=== PATIENT | female | born 1940 | race Caucasian/White ===

== ENCOUNTER 2018-05-03 12:09 | Emergency (ER) | payer MEDICARE ==
[2018-05-03 13:26] LABS: #Eosinphils 0.1 thou/uL (0.0-0.7); #Lymphocytes 1.7 thou/uL (1.20-3.40); #Monocytes 0.3 thou/uL (0.11-0.59); #Neutrophils 2.8 thou/uL (1.40-6.50); %Basophils 0.9 % (0.0-1.0); %Eosinophils 1.6 % (0.0-10.0); %Lymphocytes 34.6 % (21.0-51.0); %Monocytes 6.7 % (0.0-10.0); %Neutrophils 56.2 % (42.0-75.0); Hemoglobin 14.5 g/dL (12.0-16.0); Mean Corpuscular Hemoglobin 31.8 pg (27.0-31.0); Mean Corpuscular Volume 99.3 fL (78.0-98.0); Mean Platelet Volume 8.4 fL (7.4-10.4); Platelet Count 123 thou/uL (130-400); RBC Distribution Width 13.9 % (11.5-14.5); Red Blood Cell (RBC) Count 4.55 mill/uL (4.20-5.40)
[2018-05-03 13:55] LABS: ALT (SGPT) 15 U/L (8-55); AST (SGOT) 27 U/L (5-34); Albumin 4.1 g/dL (3.4-4.8); Alkaline Phosphatase 114 U/L (40-150); Anion Gap 14 mmol/L (10-20); BUN (Urea Nitrogen) 22 mg/dL (9.8-20.1); Bilirubin, Total 0.9 mg/dL (0.2-1.2); Calc. Creatinine Clearance 0 mL/min (70-130); Calcium 9.6 mg/dL (7.8-10.44); Carbon Dioxide 25 mmol/L (23-31); Chloride 101 mmol/L (98-107); Estimated GFR-MDRD 50; Globulin 3.9 g/dL (2.4-3.5); Glucose 101 mg/dL (83-110); Potassium 4.3 mmol/L (3.5-5.1); Sodium 136 mmol/L (136-145)
[2018-05-03] MEDS ORDERED: Clindamycin/D5W 600 mg/50 ml Premix Bag ONE (14:19)
--- NOTE | 2018-05-03 14:59 | ULT ---
ARTERIAL DUPLEX SONOGRAM RIGHT LOWER EXTREMITY: Date: 05/03/18 HISTORY: Right leg wound. Vascular disease. Poor flow. FINDINGS: Good color and spectral Doppler flow with biphasic waveform in the common femoral and deep femoral, f emoral, popliteal, anterior tibial, and posterior tibial arteries without abnormally elevated peak sy stolic velocities. Monophasic flow within the dorsal pedis artery. IMPRESSION: Good arterial flow within the right lower extremity. No evidence of significant stenosis. POS: [facility]
== END 2018-05-03 16:00 | disposition home or self-care (01) ==
LOC: ERS 12:09
DX: L03.115 Cellulitis of right lower limb (principal); I48.91 Unspecified atrial fibrillation; I10 Essential (primary) hypertension; Z79.82 Long term (current) use of aspirin; Z79.899 Other long term (current) drug therapy
CPT/HCPCS: 80053; 85025; 93923; 96365; J3490

== ENCOUNTER 2018-05-09 10:23 | Inpatient (IN) | payer MEDICARE ==
[2018-05-09 13:48] VITALS: BMI 30.3
[2018-05-09] MEDS ORDERED: Lorazepam 0.5 MG TAB PO PRN (14:50)
[2018-05-09] MEDS ORDERED: Vancomycin HCl 1.75 GM in Sodium Chloride 0.9% 500 ML IVPB SCH (15:00)
[2018-05-09] MEDS: Clindamycin/D5W 600 MG in Premix Bag 1 BAG IVPB SCH ×4 (15:29→21:49)
--- NOTE | 2018-05-09 15:35 | RAD ---
RIGHT LEG TWO VIEWS: 05/09/18 HISTORY: Right lower extremity cellulitis, dog bite wound. FINDINGS: The right tibia and fibula are intact. No bony destruction, fracture or periosteal reaction is seen. There are degenerative changes in the knee joint. Calcaneal spur is present. IMPRESSION: No evidence of osteomyelitis in the right leg. POS: [facility]
[2018-05-09 17:15] LABS: #Eosinphils 0.1 thou/uL (0.0-0.7); #Lymphocytes 1.8 thou/uL (1.20-3.40); #Monocytes 0.7 thou/uL (0.11-0.59); #Neutrophils 3.7 thou/uL (1.40-6.50); %Basophils 0.4 % (0.0-1.0); %Eosinophils 1.1 % (0.0-10.0); %Lymphocytes 28.2 % (21.0-51.0); %Monocytes 11.4 % (0.0-10.0); Hemoglobin 14.2 g/dL (12.0-16.0); Mean Corpuscular Hemoglobin 30.4 pg (27.0-31.0); Mean Corpuscular Volume 98.1 fL (78.0-98.0); Mean Platelet Volume 9.1 fL (7.4-10.4); Platelet Count 161 thou/uL (130-400); Red Blood Cell (RBC) Count 4.67 mill/uL (4.20-5.40); White Blood Cell (WBC) Count 6.4 thou/uL (4.8-10.8)
--- NOTE | 2018-05-09 17:28 | MRI ---
MR OF THE RIGHT FOOT WITHOUT IV CONTRAST: 05/09/18 INDICATION: History of a dog bite. Concern for spread of infection. TECHNIQUE: Multiplanar and multisequence MR images were obtained of the right foot without IV contrast. Comparis ons are made with a radiograph of the right foreleg dated 05/09/08. FINDINGS: There is a small osteochondral defect involving the medial talar dome measuring 7 mm. There is circumferential subcutaneous edema of the lower leg, hindfoot, and visualized foot. No definite bone marrow signal abnormality consistent with osteomyelitis is evident. Enthesopathic change seen off the calcaneus. There is mild peroneal tenosynovitis which may be reactive in nature. The peroneal tendons are intact . The medial flexor tendons are intact. The extensor tendon appear intact. Achilles tendon is intact. Sinus tarsi has a normal signal intensity. Visualized Lisfranc ligament is intact. IMPRESSION: 1. Circumferential edema of the visualized right lower extremity and foot that may reflect lymph edema or cellulitis. No definite drainage fluid collection is evident. 2. Suspected reactive tenosynovitis of the peroneal tendons. 3. Osteochondral lesion of the medial talar dome. POS: [facility]
[2018-05-09 17:37] LABS: Hemoglobin A1c 5.6 % (4.0-6.0)
[2018-05-09 17:42] LABS: ALT (SGPT) 12 U/L (8-55); AST (SGOT) 31 U/L (5-34); Alkaline Phosphatase 98 U/L (40-150); Anion Gap 12 mmol/L (10-20); BUN (Urea Nitrogen) 19 mg/dL (9.8-20.1); Bilirubin, Total 1.5 mg/dL (0.2-1.2); Calc. Creatinine Clearance 57 mL/min (70-130); Calcium 9.4 mg/dL (7.8-10.44); Carbon Dioxide 26 mmol/L (23-31); Chloride 100 mmol/L (98-107); Estimated GFR-MDRD 49; Globulin 4.1 g/dL (2.4-3.5); Glucose 100 mg/dL (83-110); Potassium 3.9 mmol/L (3.5-5.1); Protein, Total 8.1 g/dL (6.0-8.3); Sodium 134 mmol/L (136-145)
[2018-05-09] MEDS: Acetaminophen 325 MG TAB PO PRN (21:48)
[2018-05-09] MEDS: Apixaban 5 MG TAB PO SCH (21:48)
[2018-05-10] MEDS: Levothyroxine Sodium 75 MCG TAB PO SCH (05:29)
[2018-05-10] MEDS: Clindamycin/D5W 600 MG in Premix Bag 1 BAG IVPB SCH ×4 (05:29→21:23)
--- NOTE | 2018-05-10 07:49 | HP ---
CHIEF COMPLAINT: Cellulitis in the right lower extremity. HISTORY OF PRESENT ILLNESS: The patient is a 77-year-old female who states that for the past week she has had swelling and open drainage from her right lower leg wound, there has been intermittent heat and she states now she has recently had confusion and fever. Her daughter is here, confirmed that there has been some confusion with this patient. They first saw Dr. Bhatia on May 03 and at that time, he felt that she may probably need to be hospitalized for IV antibiotics, so he referred her to the emergency room. There she was evaluated and sent home with a prescription of Cleocin. The patient has continued to worsen with fever to the point of encephalopathy, at which point on followup in Dr. Bhatia' office today, it was decided to place her into the hospital for failed outpatient treatment and IV antibiotics for the wound. The patient states that 20-30 years ago, a dog had bitten her leg in a precise place where this wound broke open on her right lateral aspect of her leg, has now been draining, oozing clear fluid this whole time, but the right foot has gotten much more swollen, red, tender, warm to touch. The heat extends now up onto the calf, whereas last week, it was not quite gone that far. The patient states that she has been having fevers, but denies nausea, vomiting, or diarrhea. PAST MEDICAL HISTORY: Significant for atrial fibrillation that is rate controlled, hypertension which the patient is regularly noncompliant, hypothyroidism. Also, the patient has been known to be noncompliant with coming to the doctor or taking her medications. PAST SURGICAL HISTORY: Includes a neck fatty knot tumor removed a long time ago and cardioversion for her atrial fibrillation. PSYCHIATRIC HISTORY: Negative. SOCIAL HISTORY: The patient drinks socially. Has not been a smoker and lives alone. ALLERGIES: SHE IS ALLERGIC TO BACITRACIN, BACTROBAN, NEOMYCIN AND POLYMYXIN. MEDICATIONS: Her current medications include, 1. Eliquis 5 mg that she has been taking once a day instead of as ordered twice a day. 2. Aspirin 81 mg once a day. 3. Levothyroxine 75 mcg once a day. 4. Lisinopril 40 mg b.i.d. 5. Metoprolol succinate 25 mg daily. REVIEW OF SYSTEMS: GENERAL: Admits to fever and malaise, but denies chills. HEENT: Denies sores in the ears, nose, or throat with drainage. CHEST: Denies shortness of breath or coughing. CARDIOVASCULAR: Denies chest pain or palpitations. GI: Denies nausea, vomiting, or diarrhea. : She denies dysuria, frequency, urgency, blood in urine or stool. MUSCULOSKELETAL: Significant for the lower extremity edema bilaterally, but especially the redness, swelling, and pain involving the right lower extremity with open sore skin. The right calf and right foot, open sore, swelling, edema, and erythema are noted. Otherwise, no other acute rashes. NEUROLOGIC: The patient has had altered mental status per her daughter, but she denies any anesthesia, paresthesias, or changes in mentation. LYMPHATIC: Significant for the edema in both lower extremities. PSYCHIATRIC: Negative for depression or anxiety. PHYSICAL EXAMINATION: VITAL SIGNS: At the time of admission; blood pressure was 179/113, respirations 14, temperature 98.2, pulse 94% on room air. GENERAL: This is an obese, alert, disheveled female. HEENT: Normocephalic, atraumatic. Pupils are equal, round, and reactive to light. Reactivity is diminished with pupils at 2-3 mm each with arcus senilis bilaterally. TMs, nares, and pharynx are clear. The oropharynx is edentulous. NECK: Supple. Trachea midline. No mass. CHEST: Clear to auscultation. BREASTS: Deferred. HEART: Regular rate and rhythm without murmur. ABDOMEN: Soft with no organomegaly. : Deferred. EXTREMITIES: With the aforementioned right lower extremity swelling, erythema, edema, open Jeana B Luis size sore with clear drainage, erythema, heat and tenderness are noted all the way down to the foot on the right. NEUROLOGIC: Cranial nerves are intact. Gait and cerebellar function intact. Sensory exam is grossly intact. LABORATORY DATA: The laboratory work on admission showed WBCs are 6.4, hemoglobin 14.2, hematocrit 45.8, platelets are 161. Sodium 134, potassium 3.9, BUN 19, creatinine 1.08 with a GFR 49. TSH 2.2. Hemoglobin A1c 5.6. The x-rays of the tibia-fibula failed to show any osteomyelitis or bony changes. However, the MRI of the foot did show circumferential edema of the right lower extremity and foot, which appears to be lymphedema or cellulitis, suspected reactive tenosynovitis of the peroneal tendons and there is an osteochondral lesion of the medial talar dome. ASSESSMENT: 1. Right lower extremity cellulitis, failed outpatient treatment. 2. Hypertension-noncompliant. 3. Atrial fibrillation-rate controlled. PLAN: 1. Blood cultures and wound cultures are taken. 2. Begin IV antibiotics. 3. Infectious disease consultation. 4. Serial re-evaluation. Job ID: [id number]
[2018-05-10] MEDS: Apixaban 5 MG TAB PO SCH ×2 (08:05→20:33)
[2018-05-10] MEDS: Acetaminophen 325 MG TAB PO PRN (08:06)
[2018-05-10] MEDS ORDERED: Lisinopril 20 MG TAB PO SCH (09:00)
[2018-05-10] MEDS: Lisinopril 20 MG TAB PO SCH ×2 (10:41→20:33)
[2018-05-10] MEDS: Acetaminophen/Codeine 30-300mg Tablet PO PRN ×2 (11:25→20:32)
[2018-05-10] MEDS: Vancomycin HCl 1.25 GM in Sodium Chloride 0.9% 250 ML 250 ML IVPB SCH (15:22)
--- NOTE | 2018-05-10 22:01 | CON ---
DATE OF CONSULTATION: 05/10/2018 REASON FOR CONSULTATION: Right leg ulcer. HISTORY OF PRESENT ILLNESS: This is a 77-year-old female with a history of atrial fibrillation, hypertension, hypothyroidism, who acknowledges chronic swelling of lower extremities and a chronic ulcer at the posterior aspect of the right ankle associated with pain. According to her own recollection, a few years ago, she went to [facility] and they gave her treatments that led to the complete healing of the ulcer. Over the past few years, however, it has recurred. It has been treated with antimicrobial therapy by mouth and then finally, she was admitted at this time for IV antimicrobial therapy. Reportedly, many decades ago, had a dog bite in the area, but in a different site. She denies any headaches. No fever or chills. No respiratory symptoms or back pain. No abdominal pain or diarrhea. No genitourinary symptoms. No neurological symptoms. PAST MEDICAL HISTORY: Atrial fibrillation, venous insufficiency, hypothyroidism, hypertension. Had dog bite about 20 years ago. Had cardioversion. SOCIAL HISTORY: Drinks occasionally. Never smoker. Lives by herself. ALLERGIES: TOPICAL ANTIBIOTICS, MOSTLY BACITRACIN, NEOMYCIN. FAMILY HISTORY: Noncontributory. CURRENT MEDICATIONS: 1. Acetaminophen. 2. Eliquis. 3. Clindamycin. 4. Zestril. 5. Ativan. 6. Metoprolol. 7. Vancomycin. PHYSICAL EXAMINATION: VITAL SIGNS: T-max 97.8, blood pressure 160/90, pulse 98, respirations 18, and O2 saturation 90% to 92%. SKIN: Demonstrates round-shaped ulcer with some areas of necrosis at the base of the ulcer. The ulcer measures about 2 cm. Around the ulcer, there is a little bit of pink erythema, which kind of extends around the ankle in a circumferential distribution. No petechia or purpura. No blistering. HEENT: No lymphadenopathy. Ocular movements conjugate. Nasal passages are patent. Oral cavity was not remarkable. NECK: Supple. LUNGS: Symmetric clear breath sounds. HEART: S1, S2. Regular rate. No S3 or S4. ABDOMEN: Soft, not distended or tender. No ascites. No bladder distention. EXTREMITIES: Pulses are faintly palpable in popliteal on the right side, 1+ on the left. I could not feel dorsalis pedis on the right. The posterior tibialis is 1+. She is able to move extremities. Cognitive function, she has a little bit of difficulty with short and long-term recall. She is oriented, otherwise. LABORATORY DATA: White cell count 6.4, hemoglobin 14, platelets 161, with 59% neutrophils. Sodium 134, creatinine 1.08, and bilirubin 1.5. Transaminases and alkaline phosphatase normal. Albumin 4.0. We have MRI of the extremity with edema of lower extremity, probably lymphedema. No fluid collection. Peroneal tenosynovitis suspected reactive. ASSESSMENT: Venous insufficiency, possible associated peripheral vascular disease, chronic ulcer, which could be mixed of venous hypertensive ulcer plus minus arterial insufficiency ulceration. I do not believe that she has an atypical infection or malignancy at this point in time. Calciphylaxis is not likely. We will order arterial duplex ultrasound studies. Depending on results, then may advise management, as venous insufficiency ulceration, in that case antimicrobial therapy would not be required. She may need suppressive low-dose Pen-Vee K to prevent development of cellulitis until the ulcer heals. Job ID: [id number]
[2018-05-11] MEDS: Clindamycin/D5W 600 MG in Premix Bag 1 BAG IVPB SCH ×4 (04:17→21:11)
[2018-05-11] MEDS: Levothyroxine Sodium 75 MCG TAB PO SCH (05:21)
[2018-05-11 05:32] LABS: #Eosinphils 0.2 thou/uL (0.0-0.7); #Lymphocytes 0.8 thou/uL (1.20-3.40); #Monocytes 0.5 thou/uL (0.11-0.59); #Neutrophils 3.5 thou/uL (1.40-6.50); %Basophils 0.3 % (0.0-1.0); %Eosinophils 4.5 % (0.0-10.0); %Lymphocytes 15.8 % (21.0-51.0); %Neutrophils 69.4 % (42.0-75.0); Hemoglobin 13.8 g/dL (12.0-16.0); Mean Corpuscular HGB CONC 31.9 g/dL (32.0-36.0); Mean Corpuscular Hemoglobin 31.7 pg (27.0-31.0); Mean Corpuscular Volume 99.4 fL (78.0-98.0); Mean Platelet Volume 8.8 fL (7.4-10.4); Platelet Count 120 thou/uL (130-400); RBC Distribution Width 13.7 % (11.5-14.5); Red Blood Cell (RBC) Count 4.36 mill/uL (4.20-5.40); White Blood Cell (WBC) Count 5.1 thou/uL (4.8-10.8)
[2018-05-11] MEDS: Lisinopril 20 MG TAB PO SCH ×2 (08:46→20:32)
[2018-05-11] MEDS: Apixaban 5 MG TAB PO SCH ×2 (08:47→20:32)
[2018-05-11] MEDS: Acetaminophen/Codeine 30-300mg Tablet PO PRN ×2 (08:48→21:08)
[2018-05-11 15:02] LABS: Vancomycin, Trough 11.9 ug/mL
--- NOTE | 2018-05-11 15:52 | ULT ---
DOPPLER ARTERIAL EVALUATION OF BOTH LOWER EXTREMITIES: INDICATION: Peripheral vascular disease. COMPARISON: Prior Doppler arterial evaluation of the right lower extremity dated 05/03/2018. FINDINGS: Triphasic waveform is seen from the right common femoral artery through the right popliteal artery wi th more monophasic-appearing waveforms within the anterior tibial and posterior tibial arteries of ri t lower extremity which is new from the prior exam. More monophasic waveform is seen within the ri t dorsalis pedis artery which is stable. Triphasic waveform is seen in the left common femoral artery and mid to left superficial femoral dylan ry with more biphasic waveforms seen within the left profunda femoral, left proximal superficial, lef t distal superficial femoral artery, and the left popliteal artery. Biphasic waveforms are seen with in the left anterior tibial artery. IMPRESSION: 1. Interval development of more monophasic waveforms involving the anterior tibial and posterior tib ial artery of the right lower extremity. This is new from 05/03/2018. A monophasic antegrade wavefor m is seen within the right dorsalis pedis artery which is stable to the prior exam. 2. Diffuse mild atherosclerotic disease of the left lower extremity. POS: [facility]
[2018-05-11] MEDS: Vancomycin HCl 1.25 GM in Sodium Chloride 0.9% 250 ML 250 ML IVPB SCH (16:28)
[2018-05-12] MEDS: Clindamycin/D5W 600 MG in Premix Bag 1 BAG IVPB SCH ×2 (03:52→10:50)
[2018-05-12] MEDS: Acetaminophen/Codeine 30-300mg Tablet PO PRN (04:07)
[2018-05-12] MEDS: Levothyroxine Sodium 75 MCG TAB PO SCH (05:02)
[2018-05-12 06:12] LABS: Anion Gap 12 mmol/L (10-20); BUN (Urea Nitrogen) 18 mg/dL (9.8-20.1); Calc. Creatinine Clearance 61 mL/min (70-130); Calcium 8.8 mg/dL (7.8-10.44); Carbon Dioxide 23 mmol/L (23-31); Chloride 101 mmol/L (98-107); Estimated GFR-MDRD 53; Glucose 98 mg/dL (83-110); Potassium 4.4 mmol/L (3.5-5.1); Sodium 132 mmol/L (136-145)
[2018-05-12] MEDS: Lisinopril 20 MG TAB PO SCH ×2 (08:20→21:24)
[2018-05-12] MEDS: Apixaban 5 MG TAB PO SCH ×2 (08:21→21:25)
[2018-05-12] MEDS: hydrALAZINE 25 MG TAB PO SCH ×2 (14:26→21:23)
--- NOTE | 2018-05-12 14:43 | PRG ---
DATE OF SERVICE: 05/12/2018 SUBJECTIVE: Some intermittent pain in the ulcer in the right leg. No other symptoms at this time. OBJECTIVE: GENERAL: She is afebrile. Awake, alert, oriented, eating her lunch. LUNGS: Clear. HEART: S1, S2. Regular rate. ABDOMEN: Soft, not distended. EXTREMITIES: Right leg with dressing, but no evidence of cellulitis. LABORATORY DATA: Cultures have been obtained from the leg wound, but these cultures are of limited clinical value since they are from the surface of the ulcer, which is necessarily contaminated. White cell count 5.1, hemoglobin 13.8, platelets 120. Creatinine 1.01. IMAGING STUDIES: She had an arterial duplex ultrasound with monophasic waveforms, anterior tibial and posterior tibial artery, right lower extremity, which is new. ASSESSMENT AND DISCUSSION: Venous insufficiency with associated peripheral vascular disease leading to a chronic ulcer, which is nonhealing with a mixture of venous hypertensive ulcer plus arterial insufficiency ulceration. The patient will need a Vascular evaluation to see if she would be eligible for revascularization. She probably does not need antimicrobial therapy at this point in time. Job ID: [id number]
[2018-05-12] MEDS: Sulfameth/Trimethoprim DS 800-160mg TAB PO SCH (21:25)
[2018-05-12] MEDS: Betamethasone Val 0.1% OINT 15 GM TUBE TOP SCH (21:25)
[2018-05-13] MEDS: Levothyroxine Sodium 75 MCG TAB PO SCH (05:17)
[2018-05-13] MEDS: Acetaminophen/Codeine 30-300mg Tablet PO PRN ×2 (05:18→23:20)
[2018-05-13] MEDS: Lisinopril 20 MG TAB PO SCH ×2 (08:16→20:33)
[2018-05-13] MEDS: hydrALAZINE 25 MG TAB PO SCH ×3 (08:16→20:33)
[2018-05-13] MEDS: Sulfameth/Trimethoprim DS 800-160mg TAB PO SCH (08:17)
[2018-05-13] MEDS: Apixaban 5 MG TAB PO SCH ×2 (08:17→20:33)
[2018-05-13] MEDS: Betamethasone Val 0.1% OINT 15 GM TUBE TOP SCH ×2 (08:19→20:37)
--- NOTE | 2018-05-13 11:34 | CT ---
CTA OF THE ABDOMEN AND PELVIS AND BILATERAL LOWER EXTREMITY FOR RUNOFF: HISTORY: Poor circulation and cellulitis. History of old dog bite on the right leg that has reopened. TECHNIQUE: Multiple contiguous axial images were obtained in a CTA of the abdomen, pelvis, and bilateral lower e xtremities for runoff. Three-D sagittal and coronary MIP reformats were performed. FINDINGS: The gallbladder is contracted. The liver, kidneys, adrenal glands, spleen, and pancreas are unremark able. No free air, free fluid, or stranding changes are seen in the abdomen or pelvis. The large an d small bowel are unremarkable. The reproductive organs are unremarkable. Degenerative changes are seen in the spine. The visualized inferior thorax and abdominal wall soft t issues are unremarkable. Mild infrarenal atherosclerotic disease is seen. The celiac trunk, SMA, and BERNICE are patent. Moderat e atherosclerotic disease is seen in the proximal aspect of the celiac trunk over a length of approxi mately 2 cm. There are 3 right renal arteries and 1 left renal artery without significant atherosclerotic disease. The common iliac arteries show mild diffuse nonfocal atherosclerotic disease. There is moderate diff use nonfocal atherosclerotic disease in the internal iliac arteries and no significant atheroscleroti c disease in the external iliac arteries. The common femoral arteries show no significant atherosclerotic disease. The bilateral profunda femo ral arteries are patent without significant atherosclerotic disease. Minimal distal atherosclerotic disease is seen in the bilateral superficial femoral arteries. The bi lateral popliteal arteries show mild nonfocal atherosclerotic disease. There is bilateral 3-vessel r unoff with mild nonfocal bilateral atherosclerotic disease. There is diffuse bilateral lower extremi ty edema, right greater than left. IMPRESSION: 1. No focal atherosclerotic disease of either lower extremity. 2. Narrowing of the celiac trunk proximally as above. POS: [facility]
[2018-05-13] MEDS ORDERED: Iopamidol 370 76% 100 ML VIAL ONE (12:40)
--- NOTE | 2018-05-13 13:25 | PRG ---
DATE OF SERVICE: 05/13/2018 SUBJECTIVE: Doing about the same. No respiratory symptoms. No abdominal pain. No diarrhea. OBJECTIVE: VITAL SIGNS: T-max 97.9, blood pressure 148/90. LUNGS: Clear. HEART: S1 and S2. Regular rate. ABDOMEN: Soft. EXTREMITIES: Right leg, about the same. No evidence of venous stasis or any ulcer. LABORATORY DATA: The white cell count 5.1 from 2 days ago. Chemistry is not remarkable. The culture again reflects surface colonization. I do not know even if this is significant in terms of management at this point in time. The patient had an aorta with runoff, which showed no evidence of vascular disease. There is no focal atherosclerotic disease. There was minimal distal atherosclerotic disease in the bilateral superficial femoral arteries. The popliteals only with mild nonfocal disease. There was 3-vessel runoff with mild atherosclerotic disease. Diffuse edema noted. ASSESSMENT AND DISCUSSION: Chronic ulcers associated with venous insufficiency, stasis dermatitis. There is no evidence of significant peripheral vascular disease, and therefore she is eligible for management with usual fashion with compression device, probably Unna boot or similar compression dressing would be helpful. At this point, I would discontinue antimicrobial therapy and refer her to wound care for Unna boot or similar compression dressing. Job ID: [id number]
--- NOTE | 2018-05-13 16:01 | CON ---
DATE OF CONSULTATION: HISTORY OF PRESENT ILLNESS: Ms. Craven is a 77-year-old woman whom I was called to see and evaluate for peripheral vascular disease. She presented through the emergency department on referral from Dr. Bhatia. She says that she had a dog bite on her right posterior calf 20 years ago. Since that time, it had healed. In culture, no issues. It spontaneously drained at home and had been draining for an unknown period of time. On one hand, she will tell me that this is a new finding and on the other hand, she will tell me that she has had chronic leg problems on the right and it has been troublesome to have to wash her sheets some many times due to the drainage. So it is unclear to me how long this draining wound has been present. Currently, it has been treated by wound care and has a dressing on it. She walks at home, but does not claudicate. She has no history of rest pain. She has no previous history of [place], coronary artery disease, peripheral vascular disease, aortic aneurysm, stroke, or cerebrovascular disease. She has had arterial ultrasound performed, which showed some changes relative to a previous ultrasound in her right anterior tibial artery. PAST MEDICAL HISTORY: 1. Atrial fibrillation. 2. Chronic venous insufficiency. 3. Hypothyroidism. 4. Hypertension. 5. Previous cardioversion. SOCIAL HISTORY: She does not use tobacco. ALLERGIES: TOPICAL ANTIBIOTICS. CURRENT MEDICATIONS: Noted. PHYSICAL EXAMINATION: GENERAL: This is an elderly woman resting comfortably in bed. VITAL SIGNS: Her height is 5 feet 6 inches, weight is 188 pounds, temperature is 97.9, pulse is 63 and regular, blood pressure is 147/80. NECK: Supple. She has no adenopathy or carotid bruit. CHEST: Clear bilaterally. HEART: Rhythm is regular. ABDOMEN: Soft and nontender. EXTREMITIES: She has chronic venous stasis changes below the knees. The area of drainage on her posterior calf has been dressed. VASCULAR: She has palpable carotid, radial, femoral pulses bilaterally. On the right, her dorsalis pedis is strongly palpable. On the left, I think I can feel her dorsalis pedis pulse. She has a great biphasic Doppler signal in the dorsalis pedis artery. ASSESSMENT AND PLAN: Chronically ill elderly woman with a draining wound on her right posterior calf. I would continue her wound care and antibiotics as ordered. She should have reasonable enough blood flow to this area to heal. If this becomes a chronic issue, we can certainly evaluate her further with CT angiography or catheter-based angiography at that time. Job ID: [id number]
[2018-05-14] MEDS: Levothyroxine Sodium 75 MCG TAB PO SCH (05:34)
[2018-05-14 06:36] LABS: #Eosinphils 0.3 thou/uL (0.0-0.7); #Lymphocytes 1.4 thou/uL (1.20-3.40); #Monocytes 0.4 thou/uL (0.11-0.59); #Neutrophils 2.9 thou/uL (1.40-6.50); %Basophils 0.4 % (0.0-1.0); %Eosinophils 5.4 % (0.0-10.0); %Monocytes 7.3 % (0.0-10.0); %Neutrophils 58.9 % (42.0-75.0); Hemoglobin 14.2 g/dL (12.0-16.0); Mean Corpuscular HGB CONC 32.2 g/dL (32.0-36.0); Mean Corpuscular Hemoglobin 31.6 pg (27.0-31.0); Mean Corpuscular Volume 98.4 fL (78.0-98.0); Mean Platelet Volume 8.5 fL (7.4-10.4); Platelet Count 153 thou/uL (130-400); RBC Distribution Width 13.6 % (11.5-14.5); Red Blood Cell (RBC) Count 4.49 mill/uL (4.20-5.40); White Blood Cell (WBC) Count 4.9 thou/uL (4.8-10.8)
[2018-05-14 08:05] VITALS: TEMP 98.2
[2018-05-14] MEDS: hydrALAZINE 25 MG TAB PO SCH ×2 (08:12→14:10)
[2018-05-14] MEDS: Lisinopril 20 MG TAB PO SCH (08:13)
[2018-05-14] MEDS: Betamethasone Val 0.1% OINT 15 GM TUBE TOP SCH (08:14)
[2018-05-14] MEDS: Apixaban 5 MG TAB PO SCH (08:14)
[2018-05-14] MEDS: Acetaminophen/Codeine 30-300mg Tablet PO PRN (10:36)
[2018-05-14 12:48] VITALS: BP 159/84
== END 2018-05-14 14:35 | disposition home or self-care (01) | DRG 300 ==
LOC: T4-A 10:23
PROVIDERS: ADMIT Specialist; ATTEND Specialist
DX: I87.2 Venous insufficiency (chronic) (peripheral) (principal); L03.115 Cellulitis of right lower limb; E87.2 Acidosis; L97.909 Non-pressure chronic ulcer of unspecified part of unspecified lower leg with unspecified severity; I48.91 Unspecified atrial fibrillation; I10 Essential (primary) hypertension; E03.9 Hypothyroidism, unspecified; Z91.14 Patient's other noncompliance with medication regimen; Z91.19 Patient's noncompliance with other medical treatment and regimen; Z79.82 Long term (current) use of aspirin
CPT/HCPCS: 36415; 75635; 80048; 80053; 80202; 83036; 84443; 85025; 87040; 87070; 87077; 87186; 87205; 93923; J3370; J3490; J7050; Q9967

== ENCOUNTER 2018-05-24 10:24 | Outpatient (CLI) | payer MEDICARE ==
--- NOTE | 2018-05-24 14:23 | HP ---
HISTORY OF PRESENT ILLNESS: Ms. Evelyne Craven is a very pleasant 77-year-old, accompanied by her daughter, who presents to the wound center for evaluation of an ulceration of the right posterior calf. The patient was previously seen in the Wound Center for an ulceration in the same location in 2011. This ulceration healed completely with dressing changes of the 3M Coban 2 Layer Compression System on a weekly basis. The patient and her daughter state that she has had no wounds of the right or left lower legs until the ulceration for which the patient is now being seen developed. The patient was admitted to [facility] on 05/09/2018 with right lower extremity cellulitis in conjunction with the ulceration of the right posterior calf. The patient's daughter states that Ms. Craven has had approximately 3 bouts of cellulitis since she was last seen in the wound center. During the patient's hospital stay, Ms. Craven received dressing changes of Medihoney for the right posterior calf wound. Upon discharge from [facility], the patient was referred to the wound center for further evaluation and treatment. During the patient's hospital stay, Ms. Craven was seen in consultation by Infectious Diseases and CV Surgery. PAST MEDICAL HISTORY: 1. Hypothyroidism. 2. Atrial fibrillation. 3. Hypertension. PAST SURGICAL HISTORY: 1. Excision of mole from ear. 2. Excision of "fatty tissue" from neck. MEDICATIONS: 1. Hydralazine. 2. Levothyroxine. 3. Metoprolol. 4. Lisinopril. 5. Aspirin 81 mg. 6. Eliquis. 7. Tylenol No. 3. ALLERGIES: NEOMYCIN, BACITRACIN, AND MUPIROCIN. SOCIAL HISTORY: Social history is negative for tobacco use. The patient admits to the consumption of 3 drinks every 2 weeks since her 50s. FAMILY HISTORY: Family history significant for diabetes mellitus. The patient's brother was diagnosed with diabetes mellitus. Family history is negative for coronary artery disease. PHYSICAL EXAMINATION: VITAL SIGNS: Temperature 98.0, pulse 68, and blood pressure 215/99. GENERAL: A 77-year-old female, lying on table in examination room, in no acute distress. HEENT: Normocephalic and atraumatic. NECK: No nuchal rigidity. CHEST: Clear to auscultation. CV: Irregular. ABDOMEN: Soft. EXTREMITIES: An ulceration of the right posterior calf is present, which measures approximately 2.4 x 2.9 cm. Granulation tissue is visible within the wound margins. Necrotic and nonviable tissue present within the wound margins was debrided with an excisional full-thickness debridement with the use of a curette. No purulent drainage is associated with the wound. No erythema of the skin surrounding the wound is appreciated. No maceration of the skin of the periwound is noted. A posterior tibial pulse is easily palpable on the right. [id number] edema of the right foot and lower leg is present on exam today. NEUROLOGIC: Grossly nonfocal. ASSESSMENT AND PLAN: 1. Chronic venous hypertension with ulcer and inflammation. Silverlon, an ABD, Webril, and the 3M Coban 2 Layer Compression System will be applied to the ulceration of the right posterior calf today. Arrangements will be made for weekly dressing changes with the assistance of Home Health. I will see Ms. Craven again in 2 weeks. No antibiotics will be prescribed today based upon the appearance of the wound. 2. Hypothyroidism. 3. Atrial fibrillation. 4. Hypertension. Job ID: [id number]
[2018-05-24] MEDS ORDERED: Sodium Chloride 0.9% 15 ML NEB ONE (18:00)
[2018-05-24] MEDS ORDERED: Lidocaine 4% Topical Sol 50 ML BOT ONE (18:00)
== END 2018-05-24 10:25 | disposition home or self-care (01) ==
LOC: WCC 10:24
PROVIDERS: ATTEND Family Medicine
DX: I87.311 Chronic venous hypertension (idiopathic) with ulcer of right lower extremity (principal); L97.219 Non-pressure chronic ulcer of right calf with unspecified severity; I48.91 Unspecified atrial fibrillation; I10 Essential (primary) hypertension; E03.9 Hypothyroidism, unspecified
CPT/HCPCS: A4218

== ENCOUNTER 2018-06-07 09:41 | Outpatient (CLI) | payer MEDICARE ==
--- NOTE | 2018-06-07 11:09 | PRG ---
DATE OF SERVICE: 06/07/2018 HISTORY: Ms. Evelyne Craven is a very pleasant 77-year-old, accompanied by her daughter, who presents to the Wound Center for evaluation of an ulceration of the right posterior calf. The patient was previously seen in the Wound Center for an ulceration in the same location in 2011. This ulceration healed completely with dressing changes of the 3M Coban 2 Layer Compression System on a weekly basis. The patient and her daughter stated that she had had no wounds of the right or left lower legs until the ulceration, for which the patient is now being seen developed. The patient was admitted to [facility] on 05/09/2018, with right lower extremity cellulitis in conjunction with the ulceration of the right posterior calf. The patient's daughter stated that Ms. Craven had had approximately 3 bouts of cellulitis since she was last seen in the Wound Center. During the patient's hospital stay, Ms. Craven received dressing changes of Medihoney for the right posterior calf wound. Upon discharge from [facility], the patient was referred to the Wound Center for further evaluation and treatment. During the patient's hospital stay, Ms. Craven was seen in consultation by Infectious Diseases and Cardiovascular Surgery. At the time of the patient's last visit, Silverlon, an ABD, Webril, and the 3M Coban 2 Layer Compression System were applied to the ulceration of the right lower leg. PHYSICAL EXAMINATION: VITAL SIGNS: Temperature 97.8, pulse 58, respirations 18, blood pressure 198/85. EXTREMITIES: An ulceration of the right posterior calf is present, which measures approximately 2.9 x 2.0 cm. The dimensions of the wound at the time of the patient's last visit were approximately 2.4 x 2.9 cm. Granulation tissue is present within the wound margins. Necrotic and nonviable tissue present within the wound margins was debrided with an excisional full-thickness debridement with the use of a curette. No purulent drainage is associated with the wound. No erythema of the skin surrounding the wound is present. No maceration of the skin of the periwound is noted. A posterior tibial pulse is easily palpable on the right. Ppff-ol-tqleihsq edema of the right foot and lower leg is present on exam today. ASSESSMENT AND PLAN: 1. Chronic venous hypertension with ulcer and inflammation. Silverlon, an ABD, Webril, and the 3M Coban 2 Layer Compression System will be applied to the ulceration of the right posterior calf today. The patient will continue to receive dressing changes with the assistance of Home Health. I will see Ms. Craven again in 2 weeks. 2. Hypothyroidism. 3. Atrial fibrillation. 4. Hypertension. Job ID: [id number]
[2018-06-07] MEDS ORDERED: Sodium Chloride 0.9% 15 ML NEB ONE (18:00)
[2018-06-07] MEDS ORDERED: Lidocaine 2% 11 ML SYR ONE (18:00)
== END 2018-06-07 09:42 | disposition home or self-care (01) ==
LOC: WCC 09:41
PROVIDERS: ATTEND Family Medicine
DX: I87.331 Chronic venous hypertension (idiopathic) with ulcer and inflammation of right lower extremity (principal); L97.219 Non-pressure chronic ulcer of right calf with unspecified severity; I10 Essential (primary) hypertension; I48.91 Unspecified atrial fibrillation; E03.9 Hypothyroidism, unspecified
CPT/HCPCS: 11042; A4218

== ENCOUNTER 2018-06-21 10:15 | Outpatient (CLI) | payer MEDICARE ==
--- NOTE | 2018-06-21 10:31 | PRG ---
DATE OF SERVICE: 06/21/2018 HISTORY: Ms. Evelyne Craven is a very pleasant 77-year-old accompanied by her daughter, who presents to the Wound Center for evaluation of an ulceration of the right posterior calf. The patient was previously seen in the Wound Center for an ulceration in the same location in 2011. This ulceration healed completely with dressing changes of the 3M Coban 2 Layer Compression System on a weekly basis. The patient and her daughter stated that she had no wounds of the right or left lower legs until the ulceration, for which the patient is now being seen developed. The patient was admitted to [facility] on 05/09/2018, with right lower extremity cellulitis in conjunction with the ulceration of the right posterior calf. The patient's daughter stated that Ms. Craven had approximately 3 bouts of cellulitis since she was last seen in the Wound Center. During the patient's hospital stay, Ms. Craven received dressing changes of Medihoney for the right posterior calf wound. Upon discharge from [facility], the patient was referred to the Wound Center for further evaluation and treatment. During the patient's hospital stay, Ms. Craven was seen in consultation by Infectious Diseases and Cardiovascular Surgery. At the time of the patient's last visit, Silverlon, an ABD, Webril, and the 3M Coban 2 Layer Compression System were applied to the ulceration of the right lower leg. PHYSICAL EXAMINATION: VITAL SIGNS: Temperature 97.6, pulse 122, and blood pressure 141/85. EXTREMITIES: An ulceration of the right posterior calf is present, which measures approximately 2.4 x 1.6 cm. The dimensions of the wound at the time of the patient's last visit were approximately 2.9 x 2.0 cm. Granulation tissue is present within the wound margins. Necrotic and nonviable tissue present within the wound margins was debrided with an excisional full-thickness debridement with the use of a curette and scissors. No purulent drainage is associated with the wound. No erythema of the skin surrounding the wound is present. No maceration of the skin of the periwound is noted. A posterior tibial pulse is easily palpable on the right. Zwke-pq-dazbxnhc edema of the right foot and lower leg is present on exam today. ASSESSMENT AND PLAN: 1. Chronic venous hypertension with ulcer and inflammation. Silverlon, an ABD, Webril, and the 3M Coban 2 Layer Compression System will be applied to the ulceration of the right posterior calf today. The patient will continue to receive dressing changes with the assistance of Home Health. I will see Ms. Craven again in 2 weeks. 2. Hypothyroidism. 3. Atrial fibrillation. 4. Hypertension. Job ID: [id number]
[2018-06-21] MEDS ORDERED: Sodium Chloride 0.9% 15 ML NEB ONE ×2 (13:00)
== END 2018-06-21 10:16 | disposition home or self-care (01) ==
LOC: WCC 10:15
PROVIDERS: ATTEND Family Medicine
DX: I87.331 Chronic venous hypertension (idiopathic) with ulcer and inflammation of right lower extremity (principal); L97.219 Non-pressure chronic ulcer of right calf with unspecified severity; I10 Essential (primary) hypertension; I48.91 Unspecified atrial fibrillation; E03.9 Hypothyroidism, unspecified
CPT/HCPCS: 11042; A4218

== ENCOUNTER 2018-07-03 10:48 | Outpatient (CLI) | payer MEDICARE ==
--- NOTE | 2018-07-03 11:49 | PRG ---
DATE OF SERVICE: 07/03/2018 HISTORY: Ms. Evelyne Craven is a very pleasant 77-year-old, accompanied by her daughter, who presents to the Wound Center for evaluation of an ulceration of the right posterior calf. The patient has been receiving dressing changes of Silverlon, Webril, and the 3M Coban 2 Layer Compression System for the ulceration of her right lower leg. The patient has no complaints today. She denies any fever or chills. PHYSICAL EXAMINATION: VITAL SIGNS: Temperature 98, pulse 62, respirations 16, blood pressure 150/65. EXTREMITIES: An ulceration of the right posterior calf is present, which measures approximately 2.0 x 1.3 cm. The dimensions of the wound at the time of the patient's last visit were approximately 2.4 x 1.6 cm. Granulation tissue is present within the wound margins. Necrotic and nonviable tissue present within the wound margins was debrided with an excisional full-thickness debridement with the use of a curette. No purulent drainage is associated with the wound. No erythema of the skin surrounding the wound is present. No maceration of the skin of the periwound is noted. A posterior tibial pulse is easily palpable on the right. No significant edema of the right foot or lower leg is present on exam today. ASSESSMENT AND PLAN: 1. Chronic venous hypertension with ulcer and inflammation. Fibracol, Silverlon, Webril and the 3M Coban 2 Layer Compression System will be applied to the ulceration of the right posterior calf today. The patient will continue to receive dressing changes with the assistance of Home Health. I will see Ms. Craven again in 2 weeks. 2. Hypothyroidism. 3. Atrial fibrillation. 4. Hypertension. Job ID: [id number]
[2018-07-03] MEDS ORDERED: Sodium Chloride 0.9% 15 ML NEB ONE (18:00)
== END 2018-07-03 10:49 | disposition home or self-care (01) ==
LOC: WCC 10:48
PROVIDERS: ATTEND Family Medicine
DX: I87.331 Chronic venous hypertension (idiopathic) with ulcer and inflammation of right lower extremity (principal); L97.219 Non-pressure chronic ulcer of right calf with unspecified severity; I10 Essential (primary) hypertension; I48.91 Unspecified atrial fibrillation; E03.9 Hypothyroidism, unspecified
CPT/HCPCS: A4218

== ENCOUNTER 2018-07-17 09:32 | Outpatient (CLI) | payer MEDICARE ==
--- NOTE | 2018-07-17 10:45 | PRG ---
DATE OF SERVICE: 07/17/2018 HISTORY: Ms. Evelyne Craven is a very pleasant 78-year-old accompanied by her daughter, who presents to the Wound Center for evaluation of an ulceration of the right posterior calf. The patient has been receiving dressing changes of Silverlon, Webril, and the 3M Coban 2 Layer Compression System for the ulceration of her right lower leg. At the time of the patient's last visit, Fibracol was added to the patient's regimen. Ms. Craven has no complaints today. She denies any fever or chills. OBJECTIVE: VITAL SIGNS: Temperature 97.7, pulse 58, respirations 18, and blood pressure 198/91. EXTREMITIES: An ulceration of the right posterior calf is present, which measures approximately 1.5 x 1.1 cm. The dimensions of the wound at the time of the patient's last visit were approximately 2.0 x 1.3 cm. Granulation tissue is present within the wound margins. Necrotic and nonviable tissue present within the wound margins was debrided with an excisional full-thickness debridement with the use of a curette. No purulent drainage is associated with the wound. No erythema of the skin surrounding the wound is present. No maceration of the skin of the periwound is noted. A posterior tibial pulse is easily palpable on the right. No significant edema of the right foot or lower leg is present on exam today. ASSESSMENT AND PLAN: 1. Chronic venous hypertension with ulcer and inflammation. Xeroform gauze followed by an ABD and the 3M Coban 2 Layer Compression System will be applied to the ulceration of the right posterior calf today. The patient will continue to receive dressing changes with the assistance of Home Health on a weekly basis. I will see Ms. Craven again in 2 weeks if her wound is still present at this time. 2. Hypothyroidism. 3. Atrial fibrillation. 4. Hypertension. Job ID: [id number]
[2018-07-17] MEDS ORDERED: Lidocaine 2% 11 ML SYR ONE (21:46)
[2018-07-17] MEDS ORDERED: Sodium Chloride 0.9% 15 ML NEB ONE (21:46)
== END 2018-07-17 09:33 | disposition home or self-care (01) ==
LOC: WCC 09:32
PROVIDERS: ATTEND Family Medicine
DX: I87.331 Chronic venous hypertension (idiopathic) with ulcer and inflammation of right lower extremity (principal); E03.9 Hypothyroidism, unspecified; I48.91 Unspecified atrial fibrillation
CPT/HCPCS: 11042; A4218

== ENCOUNTER 2018-08-21 11:18 | Outpatient (CLI) | payer MEDICARE ==
[2018-08-21] MEDS ORDERED: Sodium Chloride 0.9% 15 ML NEB ONE (15:00)
[2018-08-21] MEDS ORDERED: Lidocaine 2% PF 100 mg/5 ml Syringe ONE (15:00)
--- NOTE | 2018-08-21 15:48 | PRG ---
DATE OF SERVICE: 08/21/2018 HISTORY: Ms. Evelyne Craven is a very pleasant 78-year-old, accompanied by her daughter, who presents to the Wound Center for evaluation of an ulceration of the right calf. The patient's daughter states that the ulceration had almost healed completely, but recurred when the patient experienced edema of her right lower extremity. The patient continues to receive dressing changes with the assistance of Home Health. The patient has no other complaints today. She denies any fever or chills. PHYSICAL EXAMINATION: VITAL SIGNS: Temperature 98.0, pulse 71, blood pressure 162/77. EXTREMITIES: An ulceration of the right posterior calf is present, which measures approximately 1.4 x 1.3 cm. The dimensions of the wound at the time of the patient's visit on 07/17/2018, were approximately 1.5 x 1.1 cm. Granulation tissue is present within the wound margins. Necrotic and nonviable tissue present within the wound margins was debrided with an excisional full-thickness debridement with the use of a curette. No purulent drainage is associated with the wound. No erythema of the skin surrounding the wound is present. No maceration of the skin of the periwound is noted. A dorsalis pedis pulse is palpable on the right. Ybyy-su-aqntzqlf edema of the right foot and lower leg is present on today's exam. ASSESSMENT AND PLAN: 1. Chronic venous hypertension with ulcer and inflammation. Xeroform gauze followed by Webril and the 3M Coban 2 Layer Compression System will be applied to the ulceration of the right posterior calf today. As per the patient's request, home health will be discontinued. Arrangements will be made for the home delivery of compression garments as well as wraparound compression. I will see Ms. Craven again in 10 days. Arrangements will also be made for evaluation for venous ablation on the right. The patient and her daughter understand and are in agreement with the preceding treatment plan. 2. Hypothyroidism. 3. Atrial fibrillation. 4. Hypertension. Job ID: [id number]
== END 2018-08-21 11:19 | disposition home or self-care (01) ==
LOC: WCC 11:18
PROVIDERS: ATTEND Family Medicine
DX: I87.331 Chronic venous hypertension (idiopathic) with ulcer and inflammation of right lower extremity (principal); E03.9 Hypothyroidism, unspecified; I10 Essential (primary) hypertension; I48.91 Unspecified atrial fibrillation
CPT/HCPCS: 11042; A4218; J2001

== ENCOUNTER 2018-09-11 10:24 | Outpatient (CLI) | payer MEDICARE ==
--- NOTE | 2018-09-11 10:58 | PRG ---
DATE OF SERVICE: 09/11/2018 HISTORY: Ms. Evelyne Craven is a very pleasant 78-year-old accompanied by her daughter, who presents to the Wound Center for evaluation of an ulceration of the right calf. The patient's daughter previously stated that the ulceration had almost healed completely, but recurred when the patient experienced edema of her right lower extremity. The patient complains of pain associated with her ulceration today. She states that she was unable to tolerate the application of the 3M Coban 2 Layer Compression System, which was applied at the time of her visit on 08/21/2018. PHYSICAL EXAMINATION: VITAL SIGNS: Temperature 98.1, pulse 48, respirations 20, blood pressure 163/72. EXTREMITIES: An ulceration of the right posterior calf is present, which measures approximately 2.4 x 2.2 cm. The dimensions of the wound at the time of the patient's visit on 08/21/2018 were approximately 1.4 x 1.3 cm. Granulation tissue is present within the wound margins. No purulent drainage is associated with the wound. Serous drainage is noted on exam today. No erythema of the skin surrounding the wound is present. No maceration of the skin of the periwound is noted. A dorsalis pedis pulse is palpable on the right. Zyfu-ty-lafcuuxe edema of the right foot and lower leg is present on exam today. Hyperpigmentation and varicosities of the right and left lower legs are noted on exam today. ASSESSMENT AND PLAN: 1. Chronic venous hypertension with ulcer and inflammation, Hydrofera Blue, followed by an ABD, Webril, and the 3M Coban 2 Layer Compression System will be applied to the ulceration of the right posterior calf today. Arrangements will continue for the home delivery of a wrap around compression on site. Arrangements will continue for the home delivery of wraparound compression and compression garments. I will see Ms. Craven again in 1 week. The patient has been referred to Dr. Shabnam Gonzalez for evaluation for venous ablation on the right. The patient has also been given a prescription for Ultram 50 mg #30, one p.o. q.6 hours p.r.n. pain. 2. Hypothyroidism. 3. Atrial fibrillation. 4. Hypertension. Job ID: [id number]
[2018-09-11] MEDS ORDERED: Sodium Chloride 0.9% 15 ML NEB ONE (18:00)
== END 2018-09-11 10:25 | disposition home or self-care (01) ==
LOC: WCC 10:24
PROVIDERS: ATTEND Family Medicine
DX: I87.331 Chronic venous hypertension (idiopathic) with ulcer and inflammation of right lower extremity (principal); E03.9 Hypothyroidism, unspecified; I48.91 Unspecified atrial fibrillation; I10 Essential (primary) hypertension
CPT/HCPCS: A4218

== ENCOUNTER 2018-09-21 09:33 | Outpatient (CLI) | payer MEDICARE ==
--- NOTE | 2018-09-21 10:37 | PRG ---
DATE OF SERVICE: 09/21/2018 HISTORY: Ms. Evelyne Craven is a very pleasant 78-year-old, accompanied by her daughter, who presents to the Wound Center for evaluation of an ulceration of the right calf. Previously, the patient's daughter stated that the ulceration had almost healed completely, but recurred when the patient experienced edema of her right lower extremity. At the time of the patient's last visit, Hydrofera Blue was applied to the right calf ulceration. Again, the patient asked that the 3M Coban 2 Layer Compression System will be discontinued prior to her appointment today because of the wrap being "tight." PHYSICAL EXAMINATION: VITAL SIGNS: Temperature 98.1, pulse 61, respirations 17, and blood pressure 166/77. EXTREMITIES: An ulceration of the right posterior calf is present, which measures approximately 2.3 x 2.4 cm. The dimensions of the wound at the time of the patient's visit on 09/11/2018, were approximately 2.4 x 2.2 cm. Eschar is associated with the wound on exam today. No purulent drainage is associated with the wound. No erythema of the skin surrounding the wound is present. No maceration of the skin of the periwound is noted. A dorsalis pedis pulse is palpable on the right. Qzjz-mj-ekudidqf edema of the right foot and lower leg is present on exam today. Hyperpigmentation and varicosities of the right and left lower legs are noted on today's exam. ASSESSMENT AND PLAN: 1. Chronic venous hypertension with ulcer and inflammation. Medihoney, 4x4s, Webril, and the 3M Coban 2 Layer Compression System will be applied to the ulceration of the right posterior calf today. Arrangements were previously made for the home delivery of wraparound compression and compression garments. I will discuss the treatment plan with Dr. Lacho Manzano who saw Ms. Craven in consultation during her last hospital admission. 2. Hypothyroidism. 3. Atrial fibrillation. 4. Hypertension. Job ID: [id number]
[2018-09-21] MEDS ORDERED: Sodium Chloride 0.9% 15 ML NEB ONE (15:00)
== END 2018-09-21 09:34 | disposition home or self-care (01) ==
LOC: WCC 09:33
PROVIDERS: ATTEND Family Medicine
DX: I87.331 Chronic venous hypertension (idiopathic) with ulcer and inflammation of right lower extremity (principal); E03.9 Hypothyroidism, unspecified; I48.91 Unspecified atrial fibrillation; I10 Essential (primary) hypertension
CPT/HCPCS: 29581; A4218

== ENCOUNTER 2018-10-11 09:27 | Outpatient (CLI) | payer MEDICARE ==
--- NOTE | 2018-10-11 11:00 | PRG ---
DATE OF SERVICE: 10/11/2018 HISTORY: Ms. Evelyne Craven is a very pleasant 78-year-old accompanied by her daughter, who presents to the Wound Center for evaluation of an ulceration of the right calf. The patient has been seen in consultation by Dr. Lacho Manzano. At the time of the patient's visit with Dr. Manzano, the patient was instructed to elevate her legs at all times. The patient at the time of her visit with Dr. Torres was referred to Dr. Gonzalez for evaluation for venous ablation on the right. PHYSICAL EXAMINATION: VITAL SIGNS: Temperature 98.0, pulse 59, respirations 18, and blood pressure 164/75. EXTREMITIES: An ulceration of the right posterior calf is present, which measures approximately 4.0 x 3.5 cm. The dimensions of the wound at the time of the patient's visit on 09/21/2018 were approximately 2.3 x 2.4 cm. Granulation tissue is present within the wound margins. No purulent drainage is associated with the wound. No erythema of the skin surrounding the wound is present. No maceration of the skin of the periwound is noted. A posterior tibial pulse is easily palpable on the right. No significant edema of the right foot or lower leg is present on exam today. Hyperpigmentation and varicosities of the right and left lower legs are noted on exam today. ASSESSMENT AND PLAN: 1. Chronic venous hypertension with ulcer and inflammation. Xeroform, an ABD, and the 3M Coban 2-layer compression system will be applied to the ulceration of the right posterior calf today. Arrangements will be made for dressing changes 2 times per week after cleansing and irrigation with the assistance of Home Health. Arrangements will also be made for the home delivery of wraparound compression. I will see Ms. Craven again after evaluation by Dr. Gonzalez and any necessary treatment is complete. 2. Hypothyroidism. 3. Atrial fibrillation. 4. Hypertension. Job ID: [id number]
[2018-10-11] MEDS ORDERED: Sodium Chloride 0.9% 15 ML NEB ONE (11:11)
== END 2018-10-11 09:28 | disposition home or self-care (01) ==
LOC: WCC 09:27
PROVIDERS: ATTEND Family Medicine
DX: I87.331 Chronic venous hypertension (idiopathic) with ulcer and inflammation of right lower extremity (principal); L97.219 Non-pressure chronic ulcer of right calf with unspecified severity; E03.9 Hypothyroidism, unspecified; I48.91 Unspecified atrial fibrillation; I10 Essential (primary) hypertension
CPT/HCPCS: 97602; A4218

== ENCOUNTER 2019-01-01 11:59 | Outpatient (CLI) | payer MEDICARE ==
--- NOTE | 2019-01-01 14:12 | PRG ---
DATE OF SERVICE: 01/01/2019 HISTORY: Ms. Evelyne Craven is a very pleasant 78-year-old, accompanied by her daughter, who presents to the wound center for evaluation of an ulceration of the right calf. The patient has been seen in consultation by Dr. Lacho Manzano. At the time of the patient's visit with Dr. Manzano, the patient was instructed to elevate her legs at all times. Today, the patient states that she has undergone venous ablation by Dr. Gonzalez on the right. She states that she has no more followup visits with Dr. Gonzalez. The patient's daughter states that the ulceration has decreased in its dimensions since undergoing venous ablation. Today, the patient presents with erythema of the right lower leg in addition to copious serous drainage associated with the wound of her right calf. PHYSICAL EXAMINATION: VITAL SIGNS: Temperature 97.7, pulse 60, respirations 20, and blood pressure 202/90. EXTREMITIES: An ulceration of the right posterior calf is present, which measures approximately 2.3 x 3.0 cm. The dimensions of the wound at the time of the patient's visit on 10/11/2018 were approximately 4.0 x 3.5 cm. Granulation tissue is present within the wound margins. No purulent drainage is associated with the wound. Copious serous drainage is; however, associated with the wound on exam today. Erythema of the right lower leg is present. No maceration of the skin of the periwound is noted. No significant edema of the right foot or lower leg is present on exam today. ASSESSMENT AND PLAN: 1. Chronic venous hypertension with ulcer and inflammation. Xeroform, Webril, and the 3M Coban 2 Layer Compression System will be applied to the ulceration of the right posterior calf today. Arrangements will be made for dressing changes 2 to 3 times per week after cleansing and irrigation with the assistance of home health. ABDs will be utilized as needed at the time of dressing changes. The patient has been given a prescription for Keflex 500 mg #20 one p.o. b.i.d. x10 days. The patient has been instructed to return to clinic should the erythema of her right lower leg failed to resolve or should the dimensions of the right posterior calf ulceration failed to decrease with the preceding dressing changes. The patient and her daughter understand and are in agreement with the preceding treatment plan. 2. Hypothyroidism. 3. Atrial fibrillation. 4. Hypertension. Job ID: [id number]
[2019-01-01] MEDS ORDERED: Sodium Chloride 0.9% 15 ML NEB ONE (17:04)
== END 2019-01-01 12:00 | disposition home or self-care (01) ==
LOC: WCC 11:59
PROVIDERS: ATTEND Family Medicine
DX: I87.331 Chronic venous hypertension (idiopathic) with ulcer and inflammation of right lower extremity (principal); L97.216 Non-pressure chronic ulcer of right calf with bone involvement without evidence of necrosis; E03.9 Hypothyroidism, unspecified; I48.91 Unspecified atrial fibrillation; I10 Essential (primary) hypertension
CPT/HCPCS: 29581; A4218

== ENCOUNTER 2019-01-15 11:10 | Outpatient (CLI) | payer MEDICARE ==
--- NOTE | 2019-01-15 16:50 | PRG ---
DATE OF SERVICE: 01/15/2019 HISTORY: Ms. Evelyne Craven is a very pleasant 78-year-old, accompanied by her daughter, who presents to the wound center for evaluation of an ulceration of the right calf. The patient has been seen in consultation by Dr. Lacho Manzano. At the time of the patient's visit with Dr. Manzano, the patient was instructed to elevate her legs at all times. At the time of the patient's last visit, Ms. Craven stated that she had undergone venous ablation on the right by Dr. Barry Gonzalez. The patient's daughter reports the presence of new ulcerations of the right lower leg. She states that the patient has a followup appointment with Dr. Gonzalez in 1 week. The patient's daughter states that Ms. Craven has copious serous drainage associated with the new wounds of her right lower leg. PHYSICAL EXAMINATION: VITAL SIGNS: Temperature 98.0, pulse 67, respirations 18, and blood pressure 157/83. EXTREMITIES: An ulceration of the right posterior calf is present, which measures approximately 1.0 x 3.2 cm. The dimensions of the wound at the time of the patient's visit on 01/01/2019 were approximately 2.3 x 3.0 cm. Granulation tissue is present within the wound margins. No purulent drainage is associated with the wound. Multiple new superficial ulcerations are present over the right lower leg. These ulcerations are associated with copious serous drainage. ASSESSMENT AND PLAN: 1. Chronic venous hypertension with ulcer and inflammation. As stated above, the patient has undergone venous ablation by Dr. Gonzalez on the right. Also as stated above, the patient's daughter reports the development of more new superficial ulcerations of the right lower leg. The patient will be seen by Dr. Gonzalez one week from today. In the meantime, dressing changes of Multidex powder followed by ABDs, Webril, and the 3M Coban 2 Layer Compression System are to be performed 3 times per week after cleansing and irrigation with the assistance of home health. 2. Hypothyroidism. 3. Atrial fibrillation. 4. Hypertension. Job ID: [id number]
[2019-01-15] MEDS ORDERED: Sodium Chloride 0.9% 15 ML NEB ONE (18:00)
== END 2019-01-15 11:11 | disposition home or self-care (01) ==
LOC: WCC 11:10
PROVIDERS: ATTEND Family Medicine
DX: I87.331 Chronic venous hypertension (idiopathic) with ulcer and inflammation of right lower extremity (principal); L97.219 Non-pressure chronic ulcer of right calf with unspecified severity; E03.9 Hypothyroidism, unspecified; I10 Essential (primary) hypertension; I48.91 Unspecified atrial fibrillation
CPT/HCPCS: 29581; A4218

== ENCOUNTER 2021-01-29 22:23 | Inpatient (IN) | payer MEDICARE ==
[2021-01-29 23:37] LABS: #Eosinphils 0.3 thou/uL (0.0-0.7); #Lymphocytes 1.4 thou/uL (1.20-3.40); #Monocytes 0.5 thou/uL (0.11-0.59); #Neutrophils 3.2 thou/uL (1.40-6.50); %Basophils 0.7 % (0.0-1.0); %Eosinophils 5.2 % (0.0-10.0); %Lymphocytes 26.1 % (21.0-51.0); %Monocytes 8.9 % (0.0-10.0); %Neutrophils 59.2 % (42.0-75.0); Hemoglobin 12.9 g/dL (12.0-16.0); Mean Corpuscular Hemoglobin 31.9 pg (27.0-31.0); Mean Corpuscular Volume 96.8 fL (78.0-98.0); Mean Platelet Volume 6.9 fL (7.4-10.4); Platelet Count 198 thou/uL (130-400); Red Blood Cell (RBC) Count 4.05 mill/uL (4.20-5.40); White Blood Cell (WBC) Count 5.4 thou/uL (4.8-10.8)
[2021-01-30 00:02] LABS: ALT (SGPT) 16 U/L (8-55); AST (SGOT) 34 U/L (5-34); Albumin 3.7 g/dL (3.4-4.8); Alkaline Phosphatase 104 U/L (40-110); Anion Gap 14 mmol/L (10-20); BUN (Urea Nitrogen) 14 mg/dL (9.8-20.1); Bilirubin, Total 0.8 mg/dL (0.2-1.2); Calc. Creatinine Clearance 0 mL/min (70-130); Calcium 9.2 mg/dL (7.8-10.44); Carbon Dioxide 27 mmol/L (23-31); Chloride 94 mmol/L (98-107); Globulin 4.5 g/dL (2.4-3.5); Glucose 92 mg/dL (83-110); Potassium 4.7 mmol/L (3.5-5.1); Protein, Total 8.2 g/dL (5.8-8.1); Sodium 130 mmol/L (136-145)
[2021-01-30] MEDS ORDERED: Furosemide 40 MG/4 ML VIAL ONE (00:36)
[2021-01-30] MEDS ORDERED: Nitroglycerin 2% Ointment 1 INCH/1 GM Packet ONE (00:36)
[2021-01-30 02:31] LABS: Troponin I Less than 0.010 ng/mL (< 0.028)
[2021-01-30 03:09] VITALS: BMI 26.4
[2021-01-30 06:00] LABS: Troponin I Less than 0.010 ng/mL (< 0.028)
[2021-01-30] MEDS: Vancomycin 1 GM in Premix Bag 1 BAG IVPB SCH ×2 (09:28→21:21)
[2021-01-30] MEDS: Apixaban 5 MG TAB PO SCH ×2 (09:34→21:21)
[2021-01-30] MEDS: Aspirin Chewable 81 MG TAB PO SCH (09:34)
[2021-01-30] MEDS: Furosemide 20 MG/2 ML VIAL SLOW IVP SCH ×2 (09:35→17:55)
[2021-01-30] MEDS: hydrALAZINE 25 MG TAB PO SCH ×3 (09:35→21:20)
[2021-01-30] MEDS: Lisinopril 20 MG TAB PO SCH ×2 (09:35→21:20)
[2021-01-30 12:19] LABS: SARS-CoV-2 PCR by NAA Not Detected (NotDetected)
[2021-01-30] MEDS: Acetaminophen 325 MG TAB PO PRN (21:21)
[2021-01-31 05:01] LABS: #Eosinphils 0.2 thou/uL (0.0-0.7); #Lymphocytes 1.3 thou/uL (1.20-3.40); #Monocytes 0.5 thou/uL (0.11-0.59); #Neutrophils 3.8 thou/uL (1.40-6.50); %Basophils 0.1 % (0.0-1.0); %Eosinophils 2.7 % (0.0-10.0); %Lymphocytes 22.7 % (21.0-51.0); %Neutrophils 66.5 % (42.0-75.0); Hemoglobin 12.9 g/dL (12.0-16.0); Mean Corpuscular Hemoglobin 31.7 pg (27.0-31.0); Mean Corpuscular Volume 96.2 fL (78.0-98.0); Mean Platelet Volume 6.9 fL (7.4-10.4); Platelet Count 214 thou/uL (130-400); RBC Distribution Width 12.9 % (11.5-14.5); Red Blood Cell (RBC) Count 4.07 mill/uL (4.20-5.40); White Blood Cell (WBC) Count 5.7 thou/uL (4.8-10.8)
[2021-01-31 05:15] LABS: Hemoglobin A1c 5.3 % (4.0-6.0)
[2021-01-31 05:18] LABS: Anion Gap 16 mmol/L (10-20); BUN (Urea Nitrogen) 19 mg/dL (9.8-20.1); Calc. Creatinine Clearance 60 mL/min (70-130); Carbon Dioxide 25 mmol/L (23-31); Chloride 92 mmol/L (98-107); Glucose 102 mg/dL (83-110); Potassium 4.7 mmol/L (3.5-5.1); Sodium 128 mmol/L (136-145)
[2021-01-31] MEDS: Levothyroxine Sodium 75 MCG TAB PO SCH (06:15)
[2021-01-31] MEDS: hydrALAZINE 25 MG TAB PO SCH ×3 (10:15→21:03)
[2021-01-31] MEDS: Aspirin Chewable 81 MG TAB PO SCH (10:15)
[2021-01-31] MEDS: Lisinopril 20 MG TAB PO SCH (10:15)
[2021-01-31] MEDS: Apixaban 5 MG TAB PO SCH ×2 (10:15→21:03)
[2021-01-31] MEDS: Vancomycin 1 GM in Premix Bag 1 BAG IVPB SCH ×2 (10:16→21:04)
[2021-01-31] MEDS ORDERED: Lisinopril 5 MG TAB PO SCH (13:15)
[2021-01-31 20:59] LABS: Vancomycin, Trough 20.3 ug/mL
[2021-01-31] MEDS: Lisinopril 5 MG TAB PO SCH (21:04)
[2021-02-01 05:12] LABS: #Eosinphils 0.4 thou/uL (0.0-0.7); #Lymphocytes 1.2 thou/uL (1.20-3.40); #Monocytes 0.5 thou/uL (0.11-0.59); #Neutrophils 2.7 thou/uL (1.40-6.50); %Basophils 0.4 % (0.0-1.0); %Eosinophils 9.2 % (0.0-10.0); %Lymphocytes 24.4 % (21.0-51.0); %Monocytes 9.5 % (0.0-10.0); %Neutrophils 56.6 % (42.0-75.0); Hemoglobin 12.9 g/dL (12.0-16.0); Mean Corpuscular HGB CONC 33.5 g/dL (32.0-36.0); Mean Corpuscular Hemoglobin 32.1 pg (27.0-31.0); Platelet Count 198 thou/uL (130-400); Red Blood Cell (RBC) Count 4.02 mill/uL (4.20-5.40); White Blood Cell (WBC) Count 4.8 thou/uL (4.8-10.8)
[2021-02-01 05:48] LABS: Anion Gap 14 mmol/L (10-20); BUN (Urea Nitrogen) 15 mg/dL (9.8-20.1); Calc. Creatinine Clearance 62 mL/min (70-130); Calcium 8.9 mg/dL (7.8-10.44); Carbon Dioxide 23 mmol/L (23-31); Chloride 94 mmol/L (98-107); Glucose 83 mg/dL (83-110); Potassium 4.1 mmol/L (3.5-5.1); Sodium 127 mmol/L (136-145)
[2021-02-01] MEDS: Levothyroxine Sodium 75 MCG TAB PO SCH (06:43)
[2021-02-01] MEDS: Aspirin Chewable 81 MG TAB PO SCH (08:28)
[2021-02-01] MEDS: Lisinopril 5 MG TAB PO SCH ×2 (08:28→21:27)
[2021-02-01] MEDS: hydrALAZINE 25 MG TAB PO SCH ×3 (08:29→21:26)
[2021-02-01] MEDS: Apixaban 5 MG TAB PO SCH ×2 (08:29→21:26)
[2021-02-01] MEDS: Vancomycin HCl 750 MG in Sodium Chloride 0.9% 250 ML 250 ML IVPB SCH ×2 (08:29→21:26)
[2021-02-01] MEDS ORDERED: Furosemide 20 MG/2 ML VIAL SLOW IVP SCH ×3 (11:00→16:00)
[2021-02-01] MEDS: Acetaminophen 325 MG TAB PO PRN (21:27)
[2021-02-02 05:49] LABS: #Eosinphils 0.5 thou/uL (0.0-0.7); #Lymphocytes 1.5 thou/uL (1.20-3.40); #Monocytes 0.4 thou/uL (0.11-0.59); #Neutrophils 1.9 thou/uL (1.40-6.50); %Basophils 0.6 % (0.0-1.0); %Eosinophils 11.8 % (0.0-10.0); %Lymphocytes 34.4 % (21.0-51.0); %Monocytes 9.1 % (0.0-10.0); %Neutrophils 44.1 % (42.0-75.0); Hemoglobin 11.6 g/dL (12.0-16.0); Mean Corpuscular HGB CONC 32.8 g/dL (32.0-36.0); Mean Corpuscular Hemoglobin 31.6 pg (27.0-31.0); Mean Corpuscular Volume 96.3 fL (78.0-98.0); Mean Platelet Volume 6.9 fL (7.4-10.4); Platelet Count 197 thou/uL (130-400); RBC Distribution Width 12.9 % (11.5-14.5); Red Blood Cell (RBC) Count 3.68 mill/uL (4.20-5.40); White Blood Cell (WBC) Count 4.2 thou/uL (4.8-10.8)
[2021-02-02] MEDS: Levothyroxine Sodium 75 MCG TAB PO SCH (06:02)
[2021-02-02] MEDS: Acetaminophen 325 MG TAB PO PRN (06:02)
[2021-02-02 06:10] LABS: Anion Gap 11 mmol/L (10-20); BUN (Urea Nitrogen) 22 mg/dL (9.8-20.1); Calc. Creatinine Clearance 53 mL/min (70-130); Calcium 8.6 mg/dL (7.8-10.44); Carbon Dioxide 24 mmol/L (23-31); Chloride 99 mmol/L (98-107); Glucose 84 mg/dL (83-110); Potassium 3.9 mmol/L (3.5-5.1); Sodium 130 mmol/L (136-145)
[2021-02-02] MEDS: Lisinopril 5 MG TAB PO SCH ×2 (08:06→20:52)
[2021-02-02] MEDS: Furosemide 20 MG/2 ML VIAL SLOW IVP SCH (08:06)
[2021-02-02] MEDS: Aspirin Chewable 81 MG TAB PO SCH (08:08)
[2021-02-02] MEDS: Apixaban 5 MG TAB PO SCH ×2 (08:08→20:52)
[2021-02-02] MEDS: hydrALAZINE 25 MG TAB PO SCH ×3 (08:12→20:52)
[2021-02-02] MEDS: Vancomycin HCl 750 MG in Sodium Chloride 0.9% 250 ML 250 ML IVPB SCH (08:59)
[2021-02-02 20:27] LABS: Vancomycin, Trough 25.8 ug/mL
[2021-02-02] MEDS: Cefdinir 300 MG CAP PO SCH (20:52)
[2021-02-03 05:31] LABS: #Eosinphils 0.3 thou/uL (0.0-0.7); #Lymphocytes 1.1 thou/uL (1.20-3.40); #Monocytes 0.3 thou/uL (0.11-0.59); #Neutrophils 1.7 thou/uL (1.40-6.50); %Basophils 0.6 % (0.0-1.0); %Monocytes 9.3 % (0.0-10.0); %Neutrophils 51.1 % (42.0-75.0); Hemoglobin 11.6 g/dL (12.0-16.0); Mean Corpuscular HGB CONC 31.2 g/dL (32.0-36.0); Mean Corpuscular Hemoglobin 30.2 pg (27.0-31.0); Mean Corpuscular Volume 96.5 fL (78.0-98.0); Mean Platelet Volume 7.1 fL (7.4-10.4); Platelet Count 211 thou/uL (130-400); RBC Distribution Width 12.9 % (11.5-14.5); Red Blood Cell (RBC) Count 3.85 mill/uL (4.20-5.40); White Blood Cell (WBC) Count 3.4 thou/uL (4.8-10.8)
[2021-02-03] MEDS: Levothyroxine Sodium 75 MCG TAB PO SCH (05:34)
[2021-02-03 06:06] LABS: ALT (SGPT) 13 U/L (8-55); AST (SGOT) 29 U/L (5-34); Albumin 3.1 g/dL (3.4-4.8); Alkaline Phosphatase 77 U/L (40-110); Anion Gap 13 mmol/L (10-20); BUN (Urea Nitrogen) 25 mg/dL (9.8-20.1); Bilirubin, Total 0.5 mg/dL (0.2-1.2); Calc. Creatinine Clearance 51 mL/min (70-130); Calcium 8.6 mg/dL (7.8-10.44); Carbon Dioxide 22 mmol/L (23-31); Chloride 99 mmol/L (98-107); Globulin 3.7 g/dL (2.4-3.5); Glucose 88 mg/dL (83-110); Potassium 4.1 mmol/L (3.5-5.1); Protein, Total 6.8 g/dL (5.8-8.1); Sodium 130 mmol/L (136-145)
[2021-02-03] MEDS: hydrALAZINE 25 MG TAB PO SCH (08:46)
[2021-02-03] MEDS: Lisinopril 5 MG TAB PO SCH (08:46)
[2021-02-03] MEDS: Cefdinir 300 MG CAP PO SCH (08:46)
[2021-02-03] MEDS: Furosemide 20 MG/2 ML VIAL SLOW IVP SCH (08:47)
[2021-02-03] MEDS: Apixaban 5 MG TAB PO SCH (08:47)
[2021-02-03] MEDS: Aspirin Chewable 81 MG TAB PO SCH (08:47)
[2021-02-03 12:08] VITALS: BP 128/63; TEMP 98.3
== END 2021-02-03 15:05 | disposition home or self-care (01) | DRG 291 ==
LOC: ERS 22:23 → 2NO 01-30 00:31 → OBSVTOIN 01-31 12:18
PROVIDERS: ADMIT Specialist; ATTEND Specialist
DX: I11.0 Hypertensive heart disease with heart failure (principal); I50.33 Acute on chronic diastolic (congestive) heart failure; L03.116 Cellulitis of left lower limb; I48.20 Chronic atrial fibrillation, unspecified; E87.1 Hypo-osmolality and hyponatremia; L03.115 Cellulitis of right lower limb; Z20.822 Contact with and (suspected) exposure to COVID-19; E03.9 Hypothyroidism, unspecified; F41.9 Anxiety disorder, unspecified; I87.8 Other specified disorders of veins; Z88.1 Allergy status to other antibiotic agents; Z88.2 Allergy status to sulfonamides; Z88.8 Allergy status to other drugs, medicaments and biological substances; Z79.01 Long term (current) use of anticoagulants; Z79.82 Long term (current) use of aspirin; Z79.890 Hormone replacement therapy; Z79.899 Other long term (current) drug therapy; Z91.19 Patient's noncompliance with other medical treatment and regimen
CPT/HCPCS: 36415; 71045; 80048; 80053; 80202; 83036; 83880; 84443; 84484; 85025; 93005; 93306; 93970; 96374; 96375; 96376; 97139; G0378; J1940; J3370; J7050; U0003; U0005

== ENCOUNTER 2021-03-13 21:04 | Inpatient (IN) | payer MEDICARE ==
[2021-03-13 21:49] LABS: #Lymphocytes 1.2 thou/uL (1.20-3.40); #Monocytes 0.4 thou/uL (0.11-0.59); %Basophils 1.1 % (0.0-1.0); %Eosinophils 0.1 % (0.0-10.0); %Lymphocytes 47.4 % (21.0-51.0); %Monocytes 13.4 % (0.0-10.0); %Neutrophils 37.9 % (42.0-75.0); Hemoglobin 13.9 g/dL (12.0-16.0); Mean Corpuscular HGB CONC 33.2 g/dL (32.0-36.0); Mean Corpuscular Hemoglobin 31.4 pg (27.0-31.0); Mean Corpuscular Volume 94.7 fL (78.0-98.0); Mean Platelet Volume 6.8 fL (7.4-10.4); Platelet Count 154 thou/uL (130-400); RBC Distribution Width 12.8 % (11.5-14.5); Red Blood Cell (RBC) Count 4.43 mill/uL (4.20-5.40); White Blood Cell (WBC) Count 2.6 thou/uL (4.8-10.8)
[2021-03-13 22:11] LABS: ALT (SGPT) 24 U/L (8-55); AST (SGOT) 68 U/L (5-34); Albumin 3.9 g/dL (3.4-4.8); Alkaline Phosphatase 78 U/L (40-110); Anion Gap 11 mmol/L (10-20); BUN (Urea Nitrogen) 28 mg/dL (9.8-20.1); Bilirubin, Total 0.5 mg/dL (0.2-1.2); Calc. Creatinine Clearance 0 mL/min (70-130); Calcium 9.4 mg/dL (7.8-10.44); Carbon Dioxide 26 mmol/L (23-31); Chloride 92 mmol/L (98-107); Globulin 5.2 g/dL (2.4-3.5); Glucose 86 mg/dL (83-110); Potassium 4.6 mmol/L (3.5-5.1); Protein, Total 9.1 g/dL (5.8-8.1); Sodium 124 mmol/L (136-145)
[2021-03-14 00:01] LABS: Bilirubin Negative (Negative); Blood, Urine Negative (Negative); Clarity Clear (Clear); Glucose, Urine (Dipstick) Normal (Negative); Ketone, Urine Negative (Negative); Leukocyte Negative Leu/uL (Negative); Nitrite Negative (Negative); Protein, Urine (Dipstick) 20 mg/dL (Neg-Trace); Specific Gravity, Urine 1.021 (1.002-1.036); Urobilinogen Normal mg/dL (Less than 2)
[2021-03-14] MEDS ORDERED: Acetaminophen 325 MG TAB PO PRN (02:15)
[2021-03-14] MEDS ORDERED: Ondansetron ODT 4 MG TAB SL PRN (02:15)
[2021-03-14] MEDS ORDERED: Ondansetron PF 4 MG/2 ML Vial IVP PRN (02:15)
[2021-03-14 12:09] LABS: Hemoglobin 13.3 g/dL (12.0-16.0); Lymphocytes 48 % (21-51); MDiff Complete? YES; Mean Corpuscular HGB CONC 33.2 g/dL (32.0-36.0); Mean Corpuscular Hemoglobin 31.8 pg (27.0-31.0); Mean Corpuscular Volume 95.8 fL (78.0-98.0); Monocytes 11 % (0-10); Neutrophil 39 % (42-75); Platelet Count 134 thou/uL (130-400); Platelet Morphology Comment Appears Adequate; RBC Distribution Width 12.7 % (11.5-14.5); Reactive Lymphocytes 2 % (0-10); Red Blood Cell (RBC) Count 4.17 mill/uL (4.20-5.40); White Blood Cell (WBC) Count 2.1 thou/uL (4.8-10.8)
[2021-03-14 12:13] LABS: Anion Gap 11 mmol/L (10-20); BUN (Urea Nitrogen) 24 mg/dL (9.8-20.1); Calc. Creatinine Clearance 52 mL/min (70-130); Calcium 8.6 mg/dL (7.8-10.44); Carbon Dioxide 24 mmol/L (23-31); Chloride 96 mmol/L (98-107); Glucose 76 mg/dL (83-110); Potassium 4.1 mmol/L (3.5-5.1); Sodium 127 mmol/L (136-145)
[2021-03-14] MEDS ORDERED: Amlodipine 10 MG TAB PO SCH (14:30)
[2021-03-14 18:17] LABS: SARS-CoV-2 PCR by NAA Not Detected (NotDetected)
[2021-03-14] MEDS: Apixaban 5 MG TAB PO SCH (21:21)
[2021-03-14] MEDS: guanFACINE HCl 1 MG TAB PO SCH (21:21)
[2021-03-14] MEDS: Mirtazapine 30 MG TAB PO SCH (21:22)
[2021-03-15 06:11] LABS: Anion Gap 11 mmol/L (10-20); BUN (Urea Nitrogen) 18 mg/dL (9.8-20.1); Band 4 % (5-11); Calc. Creatinine Clearance 61 mL/min (70-130); Calcium 8.5 mg/dL (7.8-10.44); Carbon Dioxide 22 mmol/L (23-31); Chloride 100 mmol/L (98-107); Glucose 87 mg/dL (83-110); Hemoglobin 12.9 g/dL (12.0-16.0); Lymphocytes 54 % (21-51); MDiff Complete? YES; Mean Corpuscular Hemoglobin 31.8 pg (27.0-31.0); Mean Corpuscular Volume 96.3 fL (78.0-98.0); Monocytes 8 % (0-10); Neutrophil 34 % (42-75); Platelet Count 132 thou/uL (130-400); Platelet Morphology Comment Appears Adequate; Potassium 3.9 mmol/L (3.5-5.1); RBC Distribution Width 12.8 % (11.5-14.5); RBC Morphology Normal; Red Blood Cell (RBC) Count 4.06 mill/uL (4.20-5.40); Sodium 129 mmol/L (136-145); White Blood Cell (WBC) Count 2.5 thou/uL (4.8-10.8)
[2021-03-15] MEDS: Levothyroxine Sodium 75 MCG TAB PO SCH (06:35)
[2021-03-15] MEDS: Apixaban 5 MG TAB PO SCH ×2 (09:29→20:49)
[2021-03-15] MEDS: Aspirin Chewable 81 MG TAB PO SCH (09:29)
[2021-03-15] MEDS: Amlodipine 10 MG TAB PO SCH (09:31)
[2021-03-15] MEDS: diphenhydrAMINE 30 GM TUBE TOP PRN (20:47)
[2021-03-15] MEDS: Mirtazapine 30 MG TAB PO SCH (20:49)
[2021-03-15] MEDS: guanFACINE HCl 1 MG TAB PO SCH (20:49)
[2021-03-16] MEDS: diphenhydrAMINE 30 GM TUBE TOP PRN ×3 (04:18→16:52)
[2021-03-16] MEDS: Levothyroxine Sodium 75 MCG TAB PO SCH (04:20)
[2021-03-16 05:58] LABS: #Lymphocytes 1.1 thou/uL (1.20-3.40); #Monocytes 0.2 thou/uL (0.11-0.59); #Neutrophils 1.1 thou/uL (1.40-6.50); %Basophils 1.5 % (0.0-1.0); %Eosinophils 0.7 % (0.0-10.0); %Lymphocytes 45.5 % (21.0-51.0); %Monocytes 9.4 % (0.0-10.0); %Neutrophils 42.9 % (42.0-75.0); Hemoglobin 13.4 g/dL (12.0-16.0); Mean Corpuscular HGB CONC 33.3 g/dL (32.0-36.0); Mean Corpuscular Volume 96.1 fL (78.0-98.0); Mean Platelet Volume 6.9 fL (7.4-10.4); Platelet Count 115 thou/uL (130-400); RBC Distribution Width 12.8 % (11.5-14.5); Red Blood Cell (RBC) Count 4.18 mill/uL (4.20-5.40); White Blood Cell (WBC) Count 2.5 thou/uL (4.8-10.8)
[2021-03-16 06:24] LABS: Anion Gap 10 mmol/L (10-20); BUN (Urea Nitrogen) 15 mg/dL (9.8-20.1); Calc. Creatinine Clearance 61 mL/min (70-130); Calcium 8.4 mg/dL (7.8-10.44); Carbon Dioxide 25 mmol/L (23-31); Chloride 98 mmol/L (98-107); Glucose 103 mg/dL (83-110); Potassium 4.1 mmol/L (3.5-5.1); Sodium 129 mmol/L (136-145)
[2021-03-16] MEDS: Aspirin Chewable 81 MG TAB PO SCH (09:32)
[2021-03-16] MEDS: Apixaban 5 MG TAB PO SCH ×2 (09:32→21:58)
[2021-03-16] MEDS: Amlodipine 10 MG TAB PO SCH (09:33)
[2021-03-16] MEDS: Betamethasone 0.1% Cream 15 GM TUBE TOP SCH (09:34)
[2021-03-16 16:02] VITALS: BMI 25.2
[2021-03-16] MEDS: Acetaminophen 325 MG TAB PO PRN (18:24)
[2021-03-16] MEDS: Mirtazapine 30 MG TAB PO SCH (21:58)
[2021-03-16] MEDS: guanFACINE HCl 1 MG TAB PO SCH (21:59)
[2021-03-17 05:54] LABS: Band 2 % (5-11); Eosinophils 1 % (0-10); Hemoglobin 13.4 g/dL (12.0-16.0); Lymphocytes 26 % (21-51); MDiff Complete? YES; Mean Corpuscular HGB CONC 33.2 g/dL (32.0-36.0); Mean Corpuscular Hemoglobin 31.9 pg (27.0-31.0); Mean Corpuscular Volume 96.1 fL (78.0-98.0); Mean Platelet Volume 7.6 fL (7.4-10.4); Monocytes 10 % (0-10); Neutrophil 48 % (42-75); Platelet Count 115 thou/uL (130-400); Platelet Morphology Comment Appears Decreased; RBC Distribution Width 12.6 % (11.5-14.5); Reactive Lymphocytes 13 % (0-10); Red Blood Cell (RBC) Count 4.19 mill/uL (4.20-5.40); White Blood Cell (WBC) Count 3.9 thou/uL (4.8-10.8)
[2021-03-17 05:59] LABS: Anion Gap 13 mmol/L (10-20); BUN (Urea Nitrogen) 15 mg/dL (9.8-20.1); Calc. Creatinine Clearance 58 mL/min (70-130); Calcium 8.6 mg/dL (7.8-10.44); Carbon Dioxide 25 mmol/L (23-31); Chloride 98 mmol/L (98-107); Glucose 98 mg/dL (83-110); Potassium 4.6 mmol/L (3.5-5.1); Sodium 131 mmol/L (136-145)
[2021-03-17] MEDS: Levothyroxine Sodium 75 MCG TAB PO SCH (05:59)
[2021-03-17] MEDS: diphenhydrAMINE 30 GM TUBE TOP PRN ×3 (06:00→22:29)
[2021-03-17] MEDS: Apixaban 5 MG TAB PO SCH ×2 (09:00→22:28)
[2021-03-17] MEDS: Aspirin Chewable 81 MG TAB PO SCH (09:00)
[2021-03-17] MEDS: Amlodipine 10 MG TAB PO SCH (09:00)
[2021-03-17] MEDS: Betamethasone 0.1% Cream 15 GM TUBE TOP SCH (09:02)
[2021-03-17] MEDS: Acetaminophen 325 MG TAB PO PRN (22:28)
[2021-03-17] MEDS: Mirtazapine 30 MG TAB PO SCH (22:28)
[2021-03-17] MEDS: guanFACINE HCl 1 MG TAB PO SCH (22:29)
[2021-03-18] MEDS: Levothyroxine Sodium 75 MCG TAB PO SCH (05:33)
[2021-03-18 06:20] LABS: #Eosinphils 0.1 thou/uL (0.0-0.7); #Monocytes 0.3 thou/uL (0.11-0.59); #Neutrophils 1.7 thou/uL (1.40-6.50); %Basophils 0.5 % (0.0-1.0); %Lymphocytes 47.2 % (21.0-51.0); %Neutrophils 41.3 % (42.0-75.0); Hemoglobin 13.3 g/dL (12.0-16.0); Mean Corpuscular HGB CONC 33.4 g/dL (32.0-36.0); Mean Corpuscular Hemoglobin 31.8 pg (27.0-31.0); Mean Corpuscular Volume 94.9 fL (78.0-98.0); Mean Platelet Volume 7.6 fL (7.4-10.4); Platelet Count 110 thou/uL (130-400); RBC Distribution Width 12.6 % (11.5-14.5); White Blood Cell (WBC) Count 4.2 thou/uL (4.8-10.8)
[2021-03-18 06:42] LABS: Anion Gap 13 mmol/L (10-20); BUN (Urea Nitrogen) 20 mg/dL (9.8-20.1); Calc. Creatinine Clearance 59 mL/min (70-130); Calcium 8.8 mg/dL (7.8-10.44); Carbon Dioxide 24 mmol/L (23-31); Chloride 99 mmol/L (98-107); Glucose 99 mg/dL (83-110); Potassium 4.5 mmol/L (3.5-5.1); Sodium 131 mmol/L (136-145)
[2021-03-18] MEDS: Apixaban 5 MG TAB PO SCH ×2 (09:57→21:47)
[2021-03-18] MEDS: Aspirin Chewable 81 MG TAB PO SCH (09:57)
[2021-03-18] MEDS: diphenhydrAMINE 30 GM TUBE TOP PRN (09:57)
[2021-03-18] MEDS: Betamethasone 0.1% Cream 15 GM TUBE TOP SCH (10:10)
[2021-03-18] MEDS: Amlodipine 10 MG TAB PO SCH (12:31)
[2021-03-18] MEDS: Mirtazapine 30 MG TAB PO SCH (21:47)
[2021-03-18] MEDS: guanFACINE HCl 1 MG TAB PO SCH (21:47)
[2021-03-18] MEDS: Rosuvastatin 10 MG TAB PO SCH (21:48)
[2021-03-19] MEDS: Levothyroxine Sodium 75 MCG TAB PO SCH (06:13)
[2021-03-19] MEDS: Betamethasone 0.1% Cream 15 GM TUBE TOP SCH (09:02)
[2021-03-19] MEDS: Amlodipine 10 MG TAB PO SCH (09:04)
[2021-03-19] MEDS: Aspirin Chewable 81 MG TAB PO SCH (09:04)
[2021-03-19] MEDS: Acetaminophen 325 MG TAB PO PRN (09:05)
[2021-03-19] MEDS: Apixaban 5 MG TAB PO SCH ×2 (09:08→21:57)
[2021-03-19 20:35] VITALS: BP 119/67; TEMP 98.6
[2021-03-19] MEDS: Mirtazapine 30 MG TAB PO SCH (21:57)
[2021-03-19] MEDS: guanFACINE HCl 1 MG TAB PO SCH (21:57)
[2021-03-19] MEDS: Rosuvastatin 10 MG TAB PO SCH (21:57)
== END 2021-03-19 23:30 | disposition swing bed (61) | DRG 69 ==
LOC: ERS 21:04 → NEURO 03-14 00:06
PROVIDERS: ADMIT Specialist; ATTEND Specialist
DX: G45.9 Transient cerebral ischemic attack, unspecified (principal); E87.1 Hypo-osmolality and hyponatremia; Z20.822 Contact with and (suspected) exposure to COVID-19; I48.21 Permanent atrial fibrillation; I73.9 Peripheral vascular disease, unspecified; F32.A Depression, unspecified; F41.9 Anxiety disorder, unspecified; I50.9 Heart failure, unspecified; D69.6 Thrombocytopenia, unspecified; G30.9 Alzheimer's disease, unspecified; F02.80 Dementia in other diseases classified elsewhere, unspecified severity, without behavioral disturbance, psychotic disturbance, mood disturbance, and anxiety; I11.0 Hypertensive heart disease with heart failure; E03.9 Hypothyroidism, unspecified; R73.03 Prediabetes; I08.1 Rheumatic disorders of both mitral and tricuspid valves; I27.20 Pulmonary hypertension, unspecified; Z79.01 Long term (current) use of anticoagulants; Z79.82 Long term (current) use of aspirin; Z79.899 Other long term (current) drug therapy; Z88.2 Allergy status to sulfonamides; Z88.8 Allergy status to other drugs, medicaments and biological substances; Z91.048 Other nonmedicinal substance allergy status
CPT/HCPCS: 36415; 51701; 70450; 70551; 71045; 74230; 80048; 80053; 81003; 84443; 84484; 85025; 87086; 93005; 93010; 93306; 93880; U0003; U0005

== ENCOUNTER 2021-09-06 11:02 | Emergency (ER) | payer MEDICARE ==
[2021-09-06] MEDS ORDERED: HYDROcodone/Acetaminophen 5/325 mg Tablet ONE (11:46)
[2021-09-06] MEDS ORDERED: Ketorolac Tromethamine 30 MG/ML VIAL ONE (11:46)
[2021-09-06 11:53] LABS: #Eosinphils 0.1 thou/uL (0.0-0.7); #Lymphocytes 1.5 thou/uL (1.20-3.40); #Monocytes 0.5 thou/uL (0.11-0.59); #Neutrophils 5.3 thou/uL (1.40-6.50); %Basophils 0.1 % (0.0-1.0); %Eosinophils 1.5 % (0.0-10.0); %Lymphocytes 20.2 % (21.0-51.0); %Monocytes 6.3 % (0.0-10.0); %Neutrophils 71.9 % (42.0-75.0); Hemoglobin 15.5 g/dL (12.0-16.0); Mean Corpuscular HGB CONC 32.1 g/dL (32.0-36.0); Mean Corpuscular Hemoglobin 29.9 pg (27.0-31.0); Mean Corpuscular Volume 93.3 fL (78.0-98.0); Mean Platelet Volume 7.1 fL (7.4-10.4); Platelet Count 238 thou/uL (130-400); RBC Distribution Width 13.1 % (11.5-14.5); Red Blood Cell (RBC) Count 5.19 mill/uL (4.20-5.40); White Blood Cell (WBC) Count 7.4 thou/uL (4.8-10.8)
[2021-09-06 12:14] LABS: ALT (SGPT) 27 U/L (8-55); AST (SGOT) 47 U/L (5-34); Albumin 3.6 g/dL (3.4-4.8); Alkaline Phosphatase 98 U/L (40-110); Anion Gap 19 mmol/L (10-20); BUN (Urea Nitrogen) 26 mg/dL (9.8-20.1); Bilirubin, Total 0.9 mg/dL (0.2-1.2); Calc. Creatinine Clearance 0 mL/min (70-130); Calcium 9.4 mg/dL (7.8-10.44); Carbon Dioxide 32 mmol/L (23-31); Chloride 93 mmol/L (98-107); Globulin 5.9 g/dL (2.4-3.5); Glucose 107 mg/dL (83-110); Protein, Total 9.5 g/dL (5.8-8.1); Sodium 141 mmol/L (136-145)
[2021-09-06 12:25] LABS: Potassium 2.7 mmol/L (3.5-5.1)
[2021-09-06] MEDS ORDERED: Potassium Chloride 20 MEQ TAB ONE (12:28)
[2021-09-06 15:07] LABS: Bacteria/HPF 2+ HPF (None Seen); Bilirubin Negative (Negative); Blood, Urine Negative (Negative); Clarity Clear (Clear); Glucose, Urine (Dipstick) Normal (Negative); Ketone, Urine Negative (Negative); Leukocyte 75 Leu/uL (Negative); Nitrite Negative (Negative); Protein, Urine (Dipstick) Negative (Neg-Trace); RBC/HPF 0-3 HPF (0-3); Specific Gravity, Urine 1.011 (1.002-1.036); Urobilinogen Normal mg/dL (Less than 2)
== END 2021-09-06 15:37 | disposition home or self-care (01) ==
LOC: ERS 11:02
DX: M54.42 Lumbago with sciatica, left side (principal); E86.0 Dehydration; E87.6 Hypokalemia; I48.91 Unspecified atrial fibrillation; E11.9 Type 2 diabetes mellitus without complications; E03.9 Hypothyroidism, unspecified; I10 Essential (primary) hypertension; Z79.01 Long term (current) use of anticoagulants; Z79.899 Other long term (current) drug therapy
CPT/HCPCS: 36415; 51701; 80053; 81003; 81015; 85025; 96361; 96374; J1885

== ENCOUNTER 2021-09-14 14:04 | Inpatient (IN) | payer MEDICARE ==
[2021-09-14 15:30] LABS: #Eosinphils 0.1 thou/uL (0.0-0.7); #Lymphocytes 1.4 thou/uL (1.20-3.40); #Monocytes 0.4 thou/uL (0.11-0.59); #Neutrophils 3.4 thou/uL (1.40-6.50); %Basophils 0.1 % (0.0-1.0); %Eosinophils 1.6 % (0.0-10.0); %Lymphocytes 26.7 % (21.0-51.0); %Monocytes 7.3 % (0.0-10.0); %Neutrophils 64.4 % (42.0-75.0); Hemoglobin 14.8 g/dL (12.0-16.0); Mean Corpuscular HGB CONC 32.2 g/dL (32.0-36.0); Mean Corpuscular Hemoglobin 30.7 pg (27.0-31.0); Mean Corpuscular Volume 95.2 fL (78.0-98.0); Mean Platelet Volume 7.5 fL (7.4-10.4); Platelet Count 179 thou/uL (130-400); RBC Distribution Width 13.3 % (11.5-14.5); Red Blood Cell (RBC) Count 4.84 mill/uL (4.20-5.40); White Blood Cell (WBC) Count 5.3 thou/uL (4.8-10.8)
[2021-09-14 15:52] LABS: CK (CPK) 68 U/L (29-168); Magnesium 2.1 mg/dL (1.6-2.6)
[2021-09-14 15:58] LABS: ALT (SGPT) 18 U/L (8-55); AST (SGOT) 38 U/L (5-34); Albumin 3.4 g/dL (3.4-4.8); Alkaline Phosphatase 100 U/L (40-110); Anion Gap 14 mmol/L (10-20); BUN (Urea Nitrogen) 20 mg/dL (9.8-20.1); Bilirubin, Total 0.7 mg/dL (0.2-1.2); Calc. Creatinine Clearance 0 mL/min (70-130); Calcium 9.1 mg/dL (7.8-10.44); Carbon Dioxide 37 mmol/L (23-31); Chloride 93 mmol/L (98-107); Globulin 5.1 g/dL (2.4-3.5); Glucose 97 mg/dL (83-110); Protein, Total 8.5 g/dL (5.8-8.1); Sodium 141 mmol/L (136-145)
[2021-09-14 16:12] LABS: Potassium 2.9 mmol/L (3.5-5.1)
[2021-09-14] MEDS ORDERED: Ondansetron PF 4 MG/2 ML Vial IVP PRN (18:57)
[2021-09-14] MEDS: Apixaban 5 MG TAB PO SCH (22:25)
[2021-09-14] MEDS: Mirtazapine 30 MG TAB PO SCH (22:25)
[2021-09-14] MEDS: NS 0.9% w/ 40 MEQ KCL 1,000 ML IV SCH (22:25)
[2021-09-14] MEDS: guanFACINE HCl 1 MG TAB PO SCH (22:26)
[2021-09-15 03:55] VITALS: BMI 30.6
[2021-09-15] MEDS: NS 0.9% w/ 40 MEQ KCL 1,000 ML IV SCH (04:37)
[2021-09-15] MEDS: NS 0.9% w/ 20 MEQ KCL 1,000 ML IV SCH ×3 (04:42→20:05)
[2021-09-15] MEDS: Levothyroxine Sodium 75 MCG TAB PO SCH (04:43)
[2021-09-15 05:35] LABS: Bacteria/HPF None Seen HPF (None Seen); RBC/HPF 0-3 HPF (0-3); Squamous Epithelial 0-3 HPF (0-3); WBC/HPF 0-3 HPF (0-3)
[2021-09-15 07:00] LABS: Anion Gap 14 mmol/L (10-20); BUN (Urea Nitrogen) 18 mg/dL (9.8-20.1); Calc. Creatinine Clearance 65 mL/min (70-130); Calcium 8.6 mg/dL (7.8-10.44); Carbon Dioxide 30 mmol/L (23-31); Cardiac Risk 3.2 (Less than 4.5); Chloride 96 mmol/L (98-107); Cholesterol 92 mg/dl (< 200 Desired); Glucose 95 mg/dL (83-110); HDL Cholesterol 29 mg/dL (>60 Neg Risk); LDL Cholesterol, Calculated 49 mg/dL; Potassium 3.6 mmol/L (3.5-5.1); Sodium 136 mmol/L (136-145); Triglycerides 70 mg/dL (Less than 150)
[2021-09-15] MEDS: Furosemide 40 MG TAB PO SCH (07:53)
[2021-09-15] MEDS: Aspirin 81 mg Enteric Coated Tablet PO SCH (07:53)
[2021-09-15] MEDS: Apixaban 5 MG TAB PO SCH ×2 (07:53→20:05)
[2021-09-15] MEDS: Acetaminophen 325 MG TAB PO PRN (20:05)
[2021-09-15] MEDS: Mirtazapine 30 MG TAB PO SCH (20:05)
[2021-09-15] MEDS: guanFACINE HCl 1 MG TAB PO SCH (20:05)
[2021-09-15] MEDS ORDERED: Ziprasidone 20 MG CAP PO SCH ×2 (21:30→23:45)
[2021-09-16] MEDS: NS 0.9% w/ 20 MEQ KCL 1,000 ML IV SCH ×3 (03:09→21:00)
[2021-09-16] MEDS: Acetaminophen 325 MG TAB PO PRN ×2 (06:24→20:58)
[2021-09-16] MEDS: Levothyroxine Sodium 75 MCG TAB PO SCH (06:24)
[2021-09-16] MEDS: Aspirin 81 mg Enteric Coated Tablet PO SCH (07:54)
[2021-09-16] MEDS: Furosemide 40 MG TAB PO SCH (07:54)
[2021-09-16] MEDS: Apixaban 5 MG TAB PO SCH ×2 (07:54→20:59)
[2021-09-16 07:57] LABS: Anion Gap 13 mmol/L (10-20); BUN (Urea Nitrogen) 11 mg/dL (9.8-20.1); Calc. Creatinine Clearance 65 mL/min (70-130); Calcium 9.2 mg/dL (7.8-10.44); Carbon Dioxide 30 mmol/L (23-31); Chloride 99 mmol/L (98-107); Glucose 118 mg/dL (83-110); Potassium 3.7 mmol/L (3.5-5.1); Sodium 138 mmol/L (136-145)
[2021-09-16] MEDS ORDERED: Lorazepam 2 MG/ML VIAL SLOW IVP PRN (08:58)
[2021-09-16] MEDS: Ziprasidone 20 MG CAP PO SCH ×2 (10:18→20:59)
[2021-09-16] MEDS: guanFACINE HCl 1 MG TAB PO SCH (20:59)
[2021-09-16] MEDS: Donepezil HCl 5 MG TAB PO SCH (20:59)
[2021-09-16] MEDS: Mirtazapine 30 MG TAB PO SCH (20:59)
[2021-09-17] MEDS: Levothyroxine Sodium 75 MCG TAB PO SCH (05:09)
[2021-09-17] MEDS: NS 0.9% w/ 20 MEQ KCL 1,000 ML IV SCH ×3 (05:09→20:05)
[2021-09-17] MEDS: Acetaminophen 325 MG TAB PO PRN ×2 (05:37→20:06)
[2021-09-17 06:15] LABS: #Eosinphils 0.3 thou/uL (0.0-0.7); #Monocytes 0.6 thou/uL (0.11-0.59); #Neutrophils 8.5 thou/uL (1.40-6.50); %Basophils 0.1 % (0.0-1.0); %Eosinophils 2.6 % (0.0-10.0); %Lymphocytes 9.8 % (21.0-51.0); %Monocytes 5.5 % (0.0-10.0); %Neutrophils 81.8 % (42.0-75.0); Hemoglobin 12.3 g/dL (12.0-16.0); Mean Corpuscular Hemoglobin 30.7 pg (27.0-31.0); Mean Corpuscular Volume 96.1 fL (78.0-98.0); Mean Platelet Volume 7.8 fL (7.4-10.4); Platelet Count 132 thou/uL (130-400); RBC Distribution Width 13.7 % (11.5-14.5); Red Blood Cell (RBC) Count 4.02 mill/uL (4.20-5.40); White Blood Cell (WBC) Count 10.4 thou/uL (4.8-10.8)
[2021-09-17 06:36] LABS: Anion Gap 13 mmol/L (10-20); BUN (Urea Nitrogen) 14 mg/dL (9.8-20.1); Calc. Creatinine Clearance 61 mL/min (70-130); Calcium 8.6 mg/dL (7.8-10.44); Carbon Dioxide 24 mmol/L (23-31); Chloride 106 mmol/L (98-107); Glucose 104 mg/dL (83-110); Sodium 139 mmol/L (136-145)
[2021-09-17] MEDS: Furosemide 40 MG TAB PO SCH (08:33)
[2021-09-17] MEDS: Ziprasidone 20 MG CAP PO SCH ×2 (08:33→20:06)
[2021-09-17] MEDS: Apixaban 5 MG TAB PO SCH ×2 (08:33→20:05)
[2021-09-17] MEDS: Aspirin 81 mg Enteric Coated Tablet PO SCH (08:33)
[2021-09-17] MEDS: Gabapentin 100 MG CAP PO SCH ×2 (16:13→20:06)
[2021-09-17] MEDS: Donepezil HCl 5 MG TAB PO SCH (20:05)
[2021-09-17] MEDS: guanFACINE HCl 1 MG TAB PO SCH (20:06)
[2021-09-17] MEDS: Mirtazapine 30 MG TAB PO SCH (20:06)
[2021-09-18] MEDS: NS 0.9% w/ 20 MEQ KCL 1,000 ML IV SCH ×2 (04:42→11:57)
[2021-09-18] MEDS: Levothyroxine Sodium 75 MCG TAB PO SCH (05:14)
[2021-09-18 08:29] VITALS: BP 160/69; TEMP 98.7
[2021-09-18] MEDS: Gabapentin 100 MG CAP PO SCH ×2 (08:38→14:48)
[2021-09-18] MEDS: Aspirin 81 mg Enteric Coated Tablet PO SCH (08:38)
[2021-09-18] MEDS: Furosemide 40 MG TAB PO SCH (08:38)
[2021-09-18] MEDS: Ziprasidone 20 MG CAP PO SCH (08:38)
[2021-09-18] MEDS: Apixaban 5 MG TAB PO SCH (08:38)
== END 2021-09-18 15:39 | DRG 552 ==
LOC: ERS 14:04 → T4-B 16:52 → INTOOBSV 16:52 → ERS 18:21 → OBSVTOIN 09-16 12:47
PROVIDERS: ADMIT Specialist; ATTEND Specialist
DX: M48.061 Spinal stenosis, lumbar region without neurogenic claudication (principal); E87.3 Alkalosis; G91.2 (Idiopathic) normal pressure hydrocephalus; R53.1 Weakness; E87.6 Hypokalemia; I10 Essential (primary) hypertension; E03.9 Hypothyroidism, unspecified; E11.51 Type 2 diabetes mellitus with diabetic peripheral angiopathy without gangrene; I48.91 Unspecified atrial fibrillation; F32.A Depression, unspecified; F41.9 Anxiety disorder, unspecified; R26.9 Unspecified abnormalities of gait and mobility; T38.0X5A Adverse effect of glucocorticoids and synthetic analogues, initial encounter; E86.0 Dehydration; F03.90 Unspecified dementia, unspecified severity, without behavioral disturbance, psychotic disturbance, mood disturbance, and anxiety; R53.81 Other malaise; G93.89 Other specified disorders of brain; Z20.822 Contact with and (suspected) exposure to COVID-19; Z60.2 Problems related to living alone; Z86.73 Personal history of transient ischemic attack (TIA), and cerebral infarction without residual deficits; Z91.14 Patient's other noncompliance with medication regimen; Z98.890 Other specified postprocedural states; Z79.899 Other long term (current) drug therapy; Z88.1 Allergy status to other antibiotic agents; Z88.2 Allergy status to sulfonamides; Z88.8 Allergy status to other drugs, medicaments and biological substances; Z79.01 Long term (current) use of anticoagulants
CPT/HCPCS: 36415; 36416; 51701; 70450; 72148; 80048; 80053; 80061; 81015; 82550; 83735; 84443; 85025; 86140; 87086; 93005; 94760; G0378; J2060; J3480; U0003; U0005